=== PATIENT | female | born 1970 | race Caucasian/White ===

== ENCOUNTER 2016-04-15 14:24 | Emergency (ER) | payer OTHER ==
[~2016-04-15] VITALS: Ht 167.6 cm; Wt 136.1 kg
[~2016-04-15 14:24] MED LIST: ACARBOSE25 MG; ALBUTEROL0.09 MG/A1 INH; ALPRAZOLAM0.5 M4 PO; ANTIVERT 25 MG25 MG PO; ANTIVERT25 MG PO; ATIVAN0.5 MG PO; ATIVAN1 MG PO; BENTYL20 MG PO; CLEOCIN HCL300 MG PO; CLINDAMYCIN HY300 MG PO; CLINDAMYCIN300 MG PO; FLEXERIL10 MG PO; FLONASE ALLERG9.9 ML NASB; FUROSEMIDE20 M1 PO; GLUMETZA500 MG PO; HYDROCODONE/ACE1 TA1 PO; IMITREX50 MG PO; LORAZEPAM0.5 MG PO; MEDROL DOSEPAK1 PAC PO; METFORMIN ER500 MG; METFORMIN HCL500 M4 PO; NYSTATIN60 GM TOP; PERCOCET 325 MG1 TA2 PO; PERCOCET 5-3251 EACH PO; PERIOGARD 473473 ML PO; PREDNISONE 20MG20 MG PO; PREDNISONE10 MG PO; SYMBICORT 80/4.1 PUF INH; TAMIFLU 75MG75 MG PO; TAMIFLU75 MG PO; TESSALON PERLE100 MG PO; TRAMADOL50 MG PO; TYLENOL XSTR500 MG PO; ULTRAM(MONOGRAP50 MG PO; VALIUM5 M1 PO; VIBRAMYCIN 100100 MG PO; VIBRAMYCIN100 MG PO; XANAX0.25 M1 PO; XANAX0.5 M1 PO; XANAX0.5 MG PO; ZITHROMAX250 M1 PO; ZOFRAN ODT4 M1 SL; ZOFRAN4 M1 SL
--- NOTE | 2016-04-15 16:19 | ED HEADACHE COMPLAINT ---
History of Present Illness General Chief Complaint: Headache Stated Complaint: MIGRAINE Source: patient, family, old records Exam Limitations: no limitations Vital Signs & Intake/Output Vital Signs & Intake/Output Vital Signs Date Time Temp Pulse Resp B/P Pulse O2 O2 Flow FiO2 Ox Delivery Rate 04/15 1848 97.3 82 16 136/74 97 Room Air 04/15 1453 97.5 75 16 132/82 97 Room Air Allergies Coded Allergies: metformin (From GLUMETZA) (Severe, RASH 07/28/15) Penicillins (PT WAS A BABY AND DOES NOT KNOW REACTION 07/28/15) Sulfa (Sulfonamide Antibiotics) (LARYNGEAL EDEMA, HIVES 07/28/15) codeine (RASH, HIVES, GI 07/28/15) ibuprofen (LARYNGEAL EDEMA 07/28/15) pseudoephedrine (CAUSES HEART PALPITATIONS, SHAKEY AND NERVOUS 07/28/15) Reconcile Medications Acetaminophen (Tylenol Xstr) 500 MG TAB 2 TAB PO PRN HEADACHE (Reported) Alprazolam 0.5 MG TABLET 1 TAB PO TIDPRN ANXIETY (Reported) Butalb/Acetaminophen/Caffeine (Fioricet 50-300-40 MG Capsule) 50 MG-300 MG-40 MG CAPSULE 1 TAB PO Q6 PRN PAIN Furosemide 20 MG TABLET 1 TAB PO PRN EDEMA (Reported) Metformin HCl (Metformin HCl ER) (Unknown Strength) TAB.ER.24H (Unknown Dose) UNKNOWN (Reported) Nystatin 60 GM POWDER 1 SHARAN TOP BID RASH (Reported) apply to affected area(s) Ondansetron (Zofran Odt) 4 MG TAB.RAPDIS 1 TAB SL TID PRN nausea Oxycodone HCl/Acetaminophen (Percocet 5-325 MG Tablet) 5 MG-325 MG TABLET 1 TAB PO BID PRN pain Triage Note: PT STATES SHE WAS SEEN HERE LAST NIGHT FOR A MIGRAINE AND STATES SHE STILL HAD IT A LITTLE BIT. PT REPORTS WHEN SHE WOKE THIS AM IT CAME BACK.. Triage Nurses Notes Reviewed? yes Onset: Gradual Duration: day(s): (few), waxing and waning, worse persistent since (this morning ) Head Injury Location: LEFT FRONTAL No Modifying Factors: none Associated Symptoms: BLURRED VISION : No Patient currently breastfeeds: No HPI: This is a 45-year-old female with history of morbid obesity, panic attacks who presents to the ER for chief complaint of persistent frontal migraine headache. She was seen here yesterday for similar symptoms given Zofran fluids and Percocet with relief. She states that she felt a little bit better when she went home. She's been nauseous ever since and hasn't tolerated food. This when she woke up she states the headache returned. She is complaining of visual disturbances on her right lateral visual field on her right eye. Pain of the headache is on the left side. History of a few headaches over the past one year. She saw a neurologist at some point but no workup was done according to the patient. No imaging studies previously. Patient denies any trauma. She denies any confusion or ataxia. Past History Travel History Traveled to [place] past 21 day No Medical History Any Pertinent Medical History? 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 History of MRSA: Yes History of VRE: No History of CDIFF: No Surgical History Surgical History: cholecystectomy, , hysterectomy Psychosocial History Who do you live with Family Services at Home None What is your primary language Mohawk Tobacco Use: Current Daily Use Daily Tobacco Use Amount/Type: => 5 Cigarettes daily ETOH Use: denies use Illicit Drug Use: denies illicit drug use Family History Family History, If Any: Relation not specified for: Diabetes mellitus in father Diabetes mellitus in mother Hypertension in father Hx Contributory? No Review of Systems Review of Systems Constitutional: Denies: chills, fever. Eyes: Reports: blurred vision. Ears, Nose, Throat, Mouth: Reports: no symptoms. Respiratory: Denies: cough, short of breath, sputum production. Cardiovascular: Denies: chest pain, palpitations. Gastrointestinal/Abdominal: Reports: nausea. Denies: abdominal pain, vomiting. Genitourinary: Reports: no symptoms. Musculoskeletal: Reports: no symptoms. Skin: Reports: no symptoms. Neurological/Psychological: Reports: anxiety, headache. Denies: ataxia, confusion, tingling, tremors. Hematologic/Endocrine: Denies: bruising, bleeding, polyuria, polydipsia. Endocrine: Reports: no symptoms. Immunologic/Allergic: Denies: splenectomy. All Other Systems: Reviewed and Negative Physical Exam Physical Exam General Appearance: well developed/nourished, alert, awake, anxious Head: atraumatic, normal appearance Eyes: Bilateral: normal appearance, PERRL, EOMI. Ears, Nose, Throat: normal pharynx, normal ENT inspection, hearing grossly normal Neck: normal inspection, supple, full range of motion, NO MENINGISMUS, NEGATIVE KERNIG, NEGATIVE BRUDZINSKI Respiratory: normal breath sounds, chest non-tender, no respiratory distress Cardiovascular: regular rate/rhythm Gastrointestinal: normal bowel sounds, soft, non-tender Back: normal inspection, normal range of motion Extremities: normal inspection, normal capillary refill, normal range of motion, no edema Psychiatric: awake, alert, oriented x 3 Cranial Nerves: normal hearing, normal speech, PERRL Coordination/Gait: normal gait Skin: intact, normal color, warm/dry Core Measures Severe Sepsis Present: No Septic Shock Present: No Progress Differential Diagnosis: meningitis, migraine PEARCE, musculoskeletal pain, sinusitis , BENIGN INTRACRANIAL HTN Plan of Care: Orders Procedure Date/time Status CT HEAD ANGIOGRAM 04/15 1624 Active Current Medications Sig/Vivi Start time Last Medication Dose Stop Time Status Admin Acetaminophen 1,000 MG ONCE ONE 04/15 1630 UNVr (Ofirmev) 04/15 1644 N/A 1 UNIT (No Carrier) Ondansetron HCl 4 MG ONCE ONE 04/15 1630 UNVr (Zofran) 04/15 1631 Sodium Chloride 1,000 ML BOLUS ONE 04/15 1630 UNVr (Normal Saline 0.9%) 04/15 1729 ZOFRAN, TYLENOL, NS. CT HEAD ANGIOGRAM ORDERED. (KATHLEEN RANDOLPH,REBECCA) Diagnostic Imaging: Viewed by Me: CT Scan. Discussed w/RAD: CT Scan. Radiology Impression: EXAM TYPE: CAT - CT HEAD ANGIOGRAM EXAMINATION: CT ANGIOGRAM HEAD CLINICAL INFORMATION: 45-year-old female with persistent left headache and right peripheral visual disturbance. COMPARISON: Head CT from 04/05. TECHNIQUE: Initially, noncontrast images of the head were acquired and presented at 2.5 mm slice thickness. Thereafter, a test bolus sequence was performed followed by intravenous administration 94 mL of Optiray 320 intravenous contrast. Helical imaging was performed in the axial plane from below the skull base to the skull vertex. Delayed postcontrast imaging of the head was also performed. The data was processed at the mammography technologist's workstation for generation of MIP sequences. Three-dimensional volume rendered reformatted images were also generated at an offline 3-D workstation. DLP: 1012 mGy-cm. FINDINGS: HEAD: The brain parenchyma has normal attenuation. No intracranial mass, cerebral edema, hemorrhage, or midline shift. The ventricles and sulci are normal in size and configuration. No extra-axial fluid collections. The paranasal sinuses, nasal cavity, nasopharynx, mastoid air cells and middle ear cavities are clear. The orbits, globes and temporomandibular joints are unremarkable. CRANIAL CT angiography: The vertebral arteries are codominant. The petrous segments of the carotid arteries are normal. The cavernous and supraclinoid segments of each ICA are widely patent. There is minimal atherosclerosis of cavernous carotid arteries. There is normal opacification of the major intracranial vessels. The anterior, middle and posterior cerebral arteries are widely patent. No acute proximal large vessel occlusion, focal flow-limiting stenosis, or saccular intracranial aneurysm is identified. No abnormal parenchymal enhancement or regional oligemia is visualized. The dural venous sinuses are patent. IMPRESSION: 1. No acute intracranial pathology. 2. No evidence of cerebral aneurysm. Departure Departure Time of Disposition: 1848 Disposition: HOME OR SELF CARE Condition: Stable Clinical Impression Primary Impression: Headache Referrals: PATIENT HAS NO PRIMARY CARE DR (PCP/Family) PRO CAIN MD. Referred to [facility] as new patient No Additional Instructions: TAKE THE ZOFRAN NEEDED FOR NAUSEA. TAKE THE FIORCET DIRECTED. FOLLOW UP WITH THE NEUROLOGIST LISTED. RETURN NEEDED. Departure Forms: Customer Survey General Discharge Information Prescriptions: Current Visit Scripts Butalb/Acetaminophen/Caffeine (Fioricet 50-300-40 MG Capsule) 1 TAB PO Q6 PRN PAIN #20 TAB
--- NOTE | 2016-04-15 18:25 | CT SCAN REPORT ---
EXAMINATION: CT ANGIOGRAM HEAD CLINICAL INFORMATION: 45-year-old female with persistent left headache and right peripheral visual disturbance. COMPARISON: Head CT from 04/05/2015. TECHNIQUE: Initially, noncontrast images of the head were acquired and presented at 2.5 mm slice thickness. Thereafter, a test bolus sequence was performed followed by intravenous administration 94 mL of Optiray 320 intravenous contrast. Helical imaging was performed in the axial plane from below the skull base to the skull vertex. Delayed postcontrast imaging of the head was also performed. The data was processed at the certified neurodiagnostic technologist's workstation for generation of MIP sequences. Three-dimensional volume rendered reformatted images were also generated at an offline 3-D workstation. DLP: 1012 mGy-cm. FINDINGS: HEAD: The brain parenchyma has normal attenuation. No intracranial mass, cerebral edema, hemorrhage, or midline shift. The ventricles and sulci are normal in size and configuration. No extra-axial fluid collections. The paranasal sinuses, nasal cavity, nasopharynx, mastoid air cells and middle ear cavities are clear. The orbits, globes and temporomandibular joints are unremarkable. CRANIAL CT angiography: The vertebral arteries are codominant. The petrous segments of the carotid arteries are normal. The cavernous and supraclinoid segments of each ICA are widely patent. There is minimal atherosclerosis of cavernous carotid arteries. There is normal opacification of the major intracranial vessels. The anterior, middle and posterior cerebral arteries are widely patent. No acute proximal large vessel occlusion, focal flow-limiting stenosis, or saccular intracranial aneurysm is identified. No abnormal parenchymal enhancement or regional oligemia is visualized. The dural venous sinuses are patent. IMPRESSION: 1. No acute intracranial pathology. 2. No evidence of cerebral aneurysm.
[2016-04-15 18:48] VITALS: BP 136/74
[2016-04-15] MEDS ORDERED: FIORICET 50-301 EACH PO (18:50)
== END 2016-04-15 19:00 ==
LOC: ERH 14:24
DX: R51 Headache (principal)
CPT/HCPCS: 96374; 96375; J0131; J2405; J2550

== ENCOUNTER 2016-05-26 18:10 | Emergency (ER) | payer OTHER ==
[~2016-05-26] VITALS: Ht 167.6 cm; Wt 139.7 kg
[~2016-05-26 18:10] MED LIST changes: +FIORICET 50-301 EACH PO
--- NOTE | 2016-05-26 19:49 | ED GI/GU/ABDOMINAL COMPLAINT ---
History of Present Illness General Chief Complaint: Abdominal Pain/Flank Pain Stated Complaint: ABDOMINAL PAIN AND CAN'T EAT OR DRINK Source: patient Exam Limitations: no limitations Vital Signs & Intake/Output Vital Signs & Intake/Output Vital Signs Date Time Temp Pulse Resp B/P Pulse O2 O2 Flow FiO2 Ox Delivery Rate 05/26 2126 99.4 05/26 1821 99.4 102 18 118/80 98 Room Air Allergies Coded Allergies: metformin (From GLUMETZA) (Severe, RASH 07/28/15) Penicillins (PT WAS A BABY AND DOES NOT KNOW REACTION 07/28/15) Sulfa (Sulfonamide Antibiotics) (LARYNGEAL EDEMA, HIVES 07/28/15) codeine (RASH, HIVES, GI 07/28/15) ibuprofen (LARYNGEAL EDEMA 07/28/15) pseudoephedrine (CAUSES HEART PALPITATIONS, SHAKEY AND NERVOUS 07/28/15) Reconcile Medications Acetaminophen (Tylenol Xstr) 500 MG TAB 2 TAB PO PRN HEADACHE (Reported) Alprazolam 0.5 MG TABLET 1 TAB PO TIDPRN ANXIETY (Reported) Butalb/Acetaminophen/Caffeine (Fioricet 50-300-40 MG Capsule) 50 MG-300 MG-40 MG CAPSULE 1 TAB PO Q6 PRN PAIN Furosemide 20 MG TABLET 1 TAB PO PRN EDEMA (Reported) Metformin HCl (Metformin HCl ER) (Unknown Strength) TAB.ER.24H (Unknown Dose) UNKNOWN (Reported) Nystatin 60 GM POWDER 1 SHARAN TOP BID RASH (Reported) apply to affected area(s) Ondansetron (Zofran Odt) 4 MG TAB.RAPDIS 1 TAB SL TID PRN nausea Oxycodone HCl/Acetaminophen (Percocet 5-325 MG Tablet) 5 MG-325 MG TABLET 1 TAB PO BID PRN pain Triage Note: 45 YO FEMALE TO TRIAGE C/O ABD PAIN "ALL OVER" AND BODY ACHES SINCE THIS AM. +D. TEMP 99.5 AT THIS TIME. PT STATES SHE HAS BEEN RUNNING A FEVER ALL DAY. PT STATES SHE HASNE BEEN ABLE TO EAT OR DRINK TODAY D/T THE PAIN. Triage Nurses Notes Reviewed? yes ? N Is pt currently ? No Onset: Gradual Duration: constant Timing: recent history Quality/Severity: fullness, moderate Severity Numbers: 5 Location: epigastric Activities at Onset: eating HPI: Patient is a 45-year-old female who presents emergency room stating that this afternoon patient had a gradual onset of chills itchy scratchy throat, not feeling well and epigastric discomfort. Patient states that she also had multiple EPISODES of nonbloody nonbilious loose watery stool production. Patient is tolerant of by mouth however she states that no vomiting occurs but it hurts immediately after she drinks or eats something. She is status post cholecystectomy and hysterectomy. Denies any significant NSAID use and denies alcohol use. Denies any cough shortness of breath chest pain arm pain jaw pain vaginal bleeding vaginal discharge hematuria dysuria or change in frequency of urination SIMILAR Sick contact at home Past History Travel History Traveled to [facility] past 21 day No Medical History Any Pertinent Medical History? 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 History of MRSA: Yes History of VRE: No History of CDIFF: No Surgical History Surgical History: cholecystectomy, , hysterectomy Psychosocial History Who do you live with Family Services at Home None What is your primary language Armenian Tobacco Use: Never used Family History Family History, If Any: Relation not specified for: Diabetes mellitus in father Diabetes mellitus in mother Hypertension in father Hx Contributory? No Review of Systems Review of Systems Constitutional: Reports: see HPI. EENTM: Reports: see HPI. Respiratory: Reports: see HPI. Denies: cough. Cardiovascular: Reports: see HPI. Denies: chest pain. GI: Reports: see HPI, abdominal pain, diarrhea. Genitourinary: Reports: no symptoms. Musculoskeletal: Reports: no symptoms. Skin: Reports: no symptoms. Neurological/Psychological: Reports: no symptoms. Hematologic/Endocrine: Reports: no symptoms. Immunologic/Allergic: Reports: no symptoms. All Other Systems: Reviewed and Negative Physical Exam Physical Exam General Appearance: no apparent distress, obese Gastrointestinal: normal bowel sounds, soft, MILD EPIGASTRIC POINT TENDERNESS NOTED, NO RIGHT LOWER QUADRANT PAIN NO LEFT LOWER QUADRANT PAIN NO PERITONEAL SIGNS NO REBOUND TENDERNESS Comments: HEENT: Normal EENT exam, extraocular motion intact, no nystagmus. Pupils equally round and reactive to light and accommodation. Nose is atraumatic. External auditory canal and Tympanic membranes clear. Pharynx normal. No swelling or edema. Neck: Supple, no lymphadenopathy, normal range of motion without pain or tenderness Back: Nontender, no CVA tenderness. Cardiovascular: Regular rate and rhythms no murmurs rubs or gallops, normal JVP Respiratory: Chest nontender. No respiratory distress.breath sounds clear to auscultation bilaterally Extremity: No edema, no calf tenderness to palpation, normal and equal pulses. Neuro: Alert oriented x3, motor sensory normal, Skin: No appreciable rash on exposed skin, skin is warm and dry. Psych: Mood and affect is normal, memory and judgment is normal. Core Measures ACS in differential dx? No Severe Sepsis Present: No Septic Shock Present: No Progress Differential Diagnosis: AAA, AMI, appendicitis, biliary colic, bowel obstruction , colon cancer, diverticulitis, esophageal varices, gastritis, hepatitis, hernia , hemorrhoids, ischemic bowel, inflamm bowel dis, kidney stone, Lizbeth-Shahrzad tear, ovarian cyst, ovarian torsion, pancreatitis, PID/cervicitis, peptic ulcer, PUD/GERD, perforated viscous, SBO, threatened AB, UTI/pyelo Plan of Care: Orders Procedure Date/time Status THROAT CULTURE W/QUICK STREP 05/26 1945 Active LIPASE 05/26 1945 Complete COMPREHENSIVE METABOLIC PANEL 05/26 1945 Complete CBC WITHOUT DIFFERENTIAL 05/26 1945 Complete AMYLASE 05/26 1945 Complete CULTURE,URINE 05/26 1822 Active URINALYSIS 05/26 1822 Complete Laboratory Tests 05/26/162112: Urine Color YEL, Urine Clarity CLEAR, Urine pH 6.0, Ur Specific [place] >= 1.030 , Urine Protein NEG, Urine Ketones NEG, Urine Nitrite NEG, Urine Bilirubin NEG, Urine Urobilinogen 0.2, Ur Leukocyte Esterase NEG, Ur Microscopic EXAM NOT REQUIRED, Urine Hemoglobin NEG, Urine Glucose NEG 05/26/162024: Anion Gap 10, Estimated GFR > 60, BUN/Creatinine Ratio 20.0, Glucose 99, Calcium 9.0, Total Bilirubin 0.5, AST 24, ALT 41, Alkaline Phosphatase 101, Total Protein 6.6, Albumin 4.0, Globulin 2.6, Albumin/Globulin Ratio 1.5, Amylase < 30 L, Lipase 75, CBC w Diff NO MAN DIFF REQ, RBC 4.89, MCV 89.9, MCH 30.1, RDW 13.4, MPV 7.8, Gran % 78.6 H, Lymphocytes % 14.9 L, Monocytes % 4.9, Eosinophils % 1.3, Basophils % 0.3, Absolute Granulocytes 8.4 H, Absolute Lymphocytes 1.6, Absolute Monocytes 0.5, Absolute Eosinophils 0.1, Absolute Basophils 0, PUBS MCHC 33.5 Microbiology 05/26 2112 URINE ROUT: Urine Culture - RECD Patient currently is in no apparent distress patient has no right lower quadrant pain at this time has no concerns of appendicitis. Blood work will be obtained IV access and normal fluid resuscitation will be administered GI cocktail will be administered. Patient is tolerant of by mouth and has no vomiting occurrence and patient has concerns of enteritis After GI cocktail was administered patient then had 1 episode of vomiting patient was given Zofran and had resolution of her nausea. Patient is requesting something to drink. Blood work was unremarkable. Patient did complain of a headache which Tylenol was administered. Patient was able tolerate by mouth on discharge and patient has significant improvement of presenting complaints. Patient states that she received medications of Protonix by Dr. Montez however she has not begun this medication and which I strongly advised patient to begin. Patient was offered Bentyl however refused this medication. Upon discharge patient looks well no apparent distress and will comply with discharge instructions and had no questions (DEMAR RODRIGUEZ,REBEKAH) Initial ED EKG: none Departure Departure Disposition: HOME OR SELF CARE Condition: Stable Clinical Impression Primary Impression: Abdominal pain Secondary Impressions: Diarrhea, Enteritis, Nausea & vomiting Referrals: HALIMA RODRIGUEZ,CAROL NORRIS (PCP/Family) Additional Instructions: As discussed begin drinking plenty of water for hydration and begin a clear liquid diet and bland diet to rest your bowels. 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 Montez of Protonix for your symptoms and Zofran for future nausea. If symptoms worsen return to emergency room. Follow-up next week with Dr. Montez if symptoms do not improve. Departure Forms: Customer Survey General Discharge Information
[2016-05-26 20:33] LABS: ABSOLUTE BASOPHIL COUNT 0 /CUMM (0.0-0.2); ABSOLUTE EOSINOPHIL COUNT 0.1 /CUMM (0.0-0.7); ABSOLUTE GRANULOCYTE CT 8.4 /CUMM (1.4-6.5); ABSOLUTE LYMPH COUNT 1.6 /CUMM (1.2-3.4); ABSOLUTE MONOCYTE COUNT 0.5 /CUMM (0.10-0.60); BASOPHIL % 0.3 % (0.0-2.0); EOSINOPHIL % 1.3 % (0-5); GRANULOCYTE % 78.6 % (42.2-75.2); MEAN CORPUSCULAR HGB 30.1 PG (27.0-31.0); MEAN CORPUSCULAR HGB CONC 33.5 G/DL (33.0-37.0); MEAN CORPUSCULAR VOLUME 89.9 FL (81.0-99.0); MEAN PLATELET VOLUME 7.8 FL (7.4-10.4); PLATELET COUNT 219 /CUMM (130-400); RBC DISTRIBUTION WIDTH 13.4 % (11.5-14.5); RED BLOOD CELL CT 4.89 /CUMM (4.20-5.40); WHITE BLOOD CELL COUNT 10.8 /CUMM (4.8-10.8)
[2016-05-26 22:13] VITALS: BP 137/62
== END 2016-05-26 22:21 ==
LOC: ERH 18:10
PROVIDERS: Physician Assistant
DX: K52.9 Noninfective gastroenteritis and colitis, unspecified (principal); J02.9 Acute pharyngitis, unspecified
CPT/HCPCS: 81003; 87086; 96361; 96374; J2405

== ENCOUNTER 2016-08-06 14:49 | Emergency (ER) | payer OTHER ==
[2016-08-06 14:55] VITALS: BP 111/75
[2016-08-06] MEDS ORDERED: FLUTICASONE PRO16 GM NASB (16:02)
[2016-08-06] MEDS ORDERED: CLINDAMYCIN HC300 M1 (16:02)
[2016-08-06] MEDS ORDERED: SERTRALINE HCL25 MG (16:03)
[2016-08-06] MEDS ORDERED: TOPIRAMATE50 M1 (16:04)
--- NOTE | 2016-08-06 16:10 | ED PSYCHIATRIC COMPLAINT ---
History of Present Illness General Chief Complaint: General Adult Stated Complaint: "NOT FEELING WELL" SHAKEY/WEAKNESS Source: patient, old records Exam Limitations: no limitations Vital Signs & Intake/Output Vital Signs & Intake/Output Vital Signs Date Time Temp Pulse Resp B/P B/P Pulse O2 O2 Flow FiO2 Mean Ox Delivery Rate 08/06 1616 Room Air 08/06 1455 97.0 90 20 111/75 98 Room Air Allergies Coded Allergies: metformin (From GLUMETZA) (Severe, RASH FROM GLUMETZA BRAND - HIVES 08/06/16) Penicillins (PT WAS A BABY AND DOES NOT KNOW REACTION 07/28/15) Sulfa (Sulfonamide Antibiotics) (LARYNGEAL EDEMA, HIVES 07/28/15) codeine (RASH, HIVES, GI 07/28/15) ibuprofen (LARYNGEAL EDEMA 07/28/15) pseudoephedrine (CAUSES HEART PALPITATIONS, SHAKEY AND NERVOUS 07/28/15) Reconcile Medications Alprazolam 0.5 MG TABLET 1 TAB PO TIDPRN ANXIETY (Reported) Clindamycin HCl (Unknown Strength) CAPSULE (Unknown Dose) UNKNOWN (Reported) Fluticasone Propionate 50 MCG/ACTUATION SPRAY.SUSP 2 SPRAY NASB PRN ALLERGIES (Reported) Metformin HCl (Metformin HCl ER) 500 MG TAB.ER.24H 1 TAB PO QPM INSULIN RESISTANCE (Reported) Sertraline HCl (Unknown Strength) TABLET (Unknown Dose) UNKNOWN (Reported) Topiramate (Unknown Strength) TABLET (Unknown Dose) UNKNOWN (Reported) Triage Note: PT STATES SHE HAS PANIC ATTACKS SO SHE WENT HOME TO GO LAY DOWN AND WHEN SHE DID SHE STATES HER HEART WAS BEATING REALLY FAST AND POUNDING AGAINST HER CHEST. PT STATES SHE GETS THE ATTACKS RANDOMLY EVEN IS SHE IS CALM AT THE TIME Triage Nurses Notes Reviewed? yes Onset: Abrupt Duration: hour(s): (1), better, resolved prior to arrival Timing: single episode today Severity: mild, moderate Severity Numbers: 5 Associated Symptoms: anxiety : No Patient currently breastfeeds: No HPI: 46 year old female with history of anxetiy on xanax prn presents to the ER for evaluation after she states she had a panic attack today that lasted longer than normal. The patient states that she randomly has panic attacks that she's had for years normally after taking her Xanax and improved. She states she was sitting in her car waiting for her daughter when she began to have episodes of diaphoresis palpitation which she's had in the past and has had an extensive workup by her cone chocolate dipper and primary care physician. She took a Xanax and states went home. She denies any chest pain jaw back arm pain no dyspnea no abdominal pain nausea vomiting or diarrhea. She states the symptoms finally resolved after being home. She denies recent Stressors. The patient is seen by her primary care physician and therapist she' s never been admitted to the hospital due to her anxiety and is declining wishing to speak with crisis when offered. The patient is resting conflicts time without complaints. No palpitations dizziness lightheadedness. Patient denies SI or HI (REBEKAH MARKS) Past History Travel History Traveled to [place] past 21 day No Medical History Any Pertinent Medical History? 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 History of MRSA: Yes History of VRE: No History of CDIFF: No Surgical History Surgical History: cholecystectomy, , hysterectomy Psychosocial History Who do you live with Family Services at Home None What is your primary language East Timorese Tobacco Use: Current Daily Use Daily Tobacco Use Amount/Type: => 5 Cigarettes daily ETOH Use: denies use Illicit Drug Use: denies illicit drug use Family History Family History, If Any: Relation not specified for: Diabetes mellitus in father Diabetes mellitus in mother Hypertension in father Hx Contributory? No (REBEKAH MARKS) Review of Systems Review of Systems Constitutional: Reports: see HPI. All Other Systems: Reviewed and Negative Comments Review of systems: See HPI, All other systems negative. Constitutional, no chills no fever, no malaise no weight loss HEENT: No visual changes no sore throat no congestion, no ear pain Cardiovascular: No chest pain , no palpitation , no orthopnea Skin: no rashes, no change in skin Respiratory: No dyspnea no cough no sputum no hemoptysis GI: No nausea no vomiting, no diarrhea, no bloating/constipation : No dysuria No hematuria, no frequency, no discharge Muscle skeletal: No joint pain, no joint swelling, no back pain, no neck pain, Neurologic: No numbness no confusion, no headache Psych: stress anxiety Heme/endocrine: No bruising no bleeding Immunology: No lymphadenopathy (REBEKAH MARKS) Physical Exam Physical Exam General Appearance: well developed/nourished, alert, awake Neurological/Psychiatric: no motor/sensory deficits, awake, alert, normal mood/ affect Comments: Well-developed well-nourished person in no acute distress HEENT: Normal EENT exam; PERRL, EOMI, HEAD is atraumatic. moist mucous membranes. Neck: Supple, no lymphadenopathy, normal range of motion Back: Nontender, no CVA tenderness. Full range of motion Cardiovascular: Regular rate and rhythms no murmurs rubs Respiratory: No respiratory distress. Patient speaking in full complete sentences. Breath sounds clear to auscultation bilaterally: NO W/R/R Abdomen: Soft, nontender nondistended, Extremity: No edema, full range of motion of extremities, normal and equal pulses bilaterally, 5 out of 5 strength noted to bilateral upper and lower extremities Neuro: Alert oriented x3, motor sensory normal, cranial nerves II through XII grossly intact. There were no obvious focal neurologic abnormalities. Skin: No appreciable rash on exposed skin, skin is warm and dry. Psych: Mood and affect is normal, memory and judgment is normal. SAD PERSONS Done? patient not suicidal (REBEKAH MARKS) Progress Differential Diagnosis: drug withdrawal, electrolyte abnormality, DEPRESSION, ANXIETY, BIPOLAR Plan of Care: Orders Procedure Date/time Status TROPONIN LEVEL 08/06 162 Complete HUMAN BETA HCG SCREEN 08/06 162 Complete CBC WITHOUT DIFFERENTIAL 08/06 1621 Complete BASIC METABOLIC PANEL 08/06 162 Complete EKG 08/06 1621 Active Laboratory Tests 08/06/16 1630: Anion Gap 9, Estimated GFR > 60, BUN/Creatinine Ratio 16.7, Glucose 94, Calcium 9.6, Troponin I < 0.01, Total Beta HCG NEGATIVE, CBC w Diff NO MAN DIFF REQ, RBC 4.84, MCV 91.0, MCH 30.4, RDW 13.6, MPV 7.7, Gran % 71.3, Lymphocytes % 21.6, Monocytes % 5.9, Eosinophils % 0.9, Basophils % 0.3, Absolute Granulocytes 9.3 H, Absolute Lymphocytes 2.8, Absolute Monocytes 0.8 H, Absolute Eosinophils 0.1 , Absolute Basophils 0, PUBS MCHC 33.4 Patient resting in no apparent distress denies any complaints at this time, perc negative, pt states she has had several year history of similar episodes. pt declining wishing to speak with crisis. I discussed with the patient at length all of their results. I had an extensive conversation regarding need for close follow up with their primary care physician this week as well as return precautions. she has xanax a home. I answered all of their questions, they feel comfortable with the plan and follow- up care. (REBEKAH MARKS) Initial ED EKG: normal intervals, normal p-waves, normal QRS complex, normal sinus rhythm (80) Prior EKG: unchanged (10/2015) (REBEKAH MARKS) Departure Departure Disposition: HOME OR SELF CARE Condition: Stable Clinical Impression Primary Impression: Generalized anxiety disorder Referrals: CAROL PETERSEN (PCP/Family) Additional Instructions: Follow-up with your primary care physician tomorrow as scheduled return at anytime sooner if he redevelops symptoms or have any other concerns or wish to speak with someone Departure Forms: Customer Survey General Discharge Information (REBEKAH MARKS) PA/VACUUM COOKER OPERATOR Co-Sign Statement Statement: ED Attending supervision documentation- [] I saw and evaluated the patient. I have also reviewed all the pertinent lab results and diagnostic results. I agree with the findings and the plan of care as documented in the PA's/VACUUM COOKER OPERATOR's documentation. [x] I have reviewed the ED Record and agree with the PA's/VACUUM COOKER OPERATOR's documentation. [] Additions or exceptions (if any) to the PAs/VACUUM COOKER OPERATOR's note and plan are summarized below: [] (NORMA PETE DO
[2016-08-06 16:41] LABS: ABSOLUTE BASOPHIL COUNT 0 /CUMM (0.0-0.2); ABSOLUTE EOSINOPHIL COUNT 0.1 /CUMM (0.0-0.7); ABSOLUTE GRANULOCYTE CT 9.3 /CUMM (1.4-6.5); ABSOLUTE LYMPH COUNT 2.8 /CUMM (1.2-3.4); ABSOLUTE MONOCYTE COUNT 0.8 /CUMM (0.10-0.60); BASOPHIL % 0.3 % (0.0-2.0); EOSINOPHIL % 0.9 % (0-5); GRANULOCYTE % 71.3 % (42.2-75.2); HEMATOCRIT 44.1 % (37-47); MEAN CORPUSCULAR HGB 30.4 PG (27.0-31.0); MEAN CORPUSCULAR HGB CONC 33.4 G/DL (33.0-37.0); MEAN PLATELET VOLUME 7.7 FL (7.4-10.4); PLATELET COUNT 266 /CUMM (130-400); RBC DISTRIBUTION WIDTH 13.6 % (11.5-14.5); RED BLOOD CELL CT 4.84 /CUMM (4.20-5.40); WHITE BLOOD CELL COUNT 13.1 /CUMM (4.8-10.8)
== END 2016-08-06 17:31 ==
LOC: ERH 14:49
PROVIDERS: Physician Assistant Medical
DX: F41.1 Generalized anxiety disorder (principal)
CPT/HCPCS: 93005; 93010

== ENCOUNTER 2016-08-16 17:21 | Emergency (ER) | payer OTHER ==
[~2016-08-16] VITALS: Ht 167.6 cm; Wt 140.6 kg
[~2016-08-16 17:21] MED LIST changes: +CLINDAMYCIN HC300 M1; +FLUTICASONE PRO16 GM NASB; +SERTRALINE HCL25 MG; +TOPIRAMATE50 M1
[2016-08-16 17:25] VITALS: BP 143/82
--- NOTE | 2016-08-16 17:59 | RADIOLOGY REPORT ---
EXAMINATION: HAND AND WRIST, LEFT CLINICAL INFORMATION: Pain COMPARISON: None. TECHNIQUE: 3 views of each. FINDINGS: Bone mineral density is maintained without evidence of fracture or dislocation. No focal osseous lesions are seen. Joint space is maintained without productive or erosive changes. IMPRESSION: No fracture or dislocation.
[2016-08-16] MEDS ORDERED: PERCOCET 5-3251 EACH PO (18:02)
[2016-08-16] MEDS ORDERED: METOPROLOL SUCC25 M1 PO (18:03)
--- NOTE | 2016-08-16 18:03 | ED HAND/WRIST INJURY COMPLAINT ---
History of Present Illness General Chief Complaint: Hand or Wrist Injury Stated Complaint: LEFT WRIST PAIN S/P FALL Source: patient Exam Limitations: no limitations Vital Signs & Intake/Output Vital Signs & Intake/Output Vital Signs Date Time Temp Pulse Resp B/P B/P Pulse O2 O2 Flow FiO2 Mean Ox Delivery Rate 08/16 1826 98 Room Air 08/16 1728 97.4 08/16 1725 97.4 80 16 143/82 98 Room Air Allergies Coded Allergies: metformin (From GLUMETZA) (Severe, RASH FROM GLUMETZA BRAND - HIVES 08/06/16) Penicillins (PT WAS A BABY AND DOES NOT KNOW REACTION 07/28/15) Sulfa (Sulfonamide Antibiotics) (LARYNGEAL EDEMA, HIVES 07/28/15) codeine (RASH, HIVES, GI 07/28/15) ibuprofen (LARYNGEAL EDEMA 07/28/15) pseudoephedrine (CAUSES HEART PALPITATIONS, SHAKEY AND NERVOUS 07/28/15) Reconcile Medications Alprazolam 0.5 MG TABLET 1 TAB PO TIDPRN ANXIETY (Reported) Metformin HCl (Metformin HCl ER) 500 MG TAB.ER.24H 1 TAB PO QPM INSULIN RESISTANCE (Reported) Metoprolol Succinate 25 MG TAB 0.5 TAB PO DAILY HEART (Reported) Oxycodone HCl/Acetaminophen (Percocet 5-325 MG Tablet) 5 MG-325 MG TABLET 1-2 TAB PO Q6P PRN PAIN Sertraline HCl (Unknown Strength) TABLET (Unknown Dose) UNKNOWN (Reported) Triage Note: PT STATES SHE FELL AND HIT HER LEFT HAND/WRIST ON WOODEN SURFACE. PT C/O HAND AND WRIST PAIN Triage Nurses Notes Reviewed? yes Occurred: just prior to arrival Duration: minute(s):, constant, continues in ED Timing: single episode today Injury Environment: home Severity: severe Pain/Injury Location: Left: Wrist, Hand. Method of Injury: direct blow, fall No Modifying Factors: none : No Patient currently breastfeeds: No HPI: 46-year-old female comes into emergency room for further evaluation of left wrist and hand pain. Patient reports that when she was walking in the house she slipped and fell backwards and flung her hand out and hit it on the door/wall. Patient reports severe pain since then. Sharp. Associated swelling. Denies any injury or trauma anywhere else on her body. Denies any other associated symptoms. (ALEXANDRIA MELGAR) Past History Travel History Traveled to [place] past 21 day No Medical History Any Pertinent Medical History? 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 History of MRSA: Yes History of VRE: No History of CDIFF: No Surgical History Surgical History: cholecystectomy, , hysterectomy Psychosocial History Who do you live with Family Services at Home None What is your primary language Maldivian Tobacco Use: Current Daily Use Daily Tobacco Use Amount/Type: => 5 Cigarettes daily ETOH Use: denies use Illicit Drug Use: denies illicit drug use Family History Family History, If Any: Relation not specified for: Diabetes mellitus in father Diabetes mellitus in mother Hypertension in father Hx Contributory? No (ALEXANDRIA MELGAR) Review of Systems Review of Systems Constitutional: Reports: no symptoms. EENTM: Reports: no symptoms. Respiratory: Reports: no symptoms. Cardiovascular: Reports: no symptoms. GI: Reports: no symptoms. Genitourinary: Reports: no symptoms. Musculoskeletal: Reports: see HPI. Skin: Reports: no symptoms. Neurological/Psychological: Reports: no symptoms. Hematologic/Endocrine: Reports: no symptoms. Immunologic/Allergic: Reports: no symptoms. All Other Systems: Reviewed and Negative (ALEXANDRIA MELGAR) Physical Exam Physical Exam General Appearance: well developed/nourished, mild distress Head: atraumatic Eyes: Bilateral: normal appearance. Ears, Nose, Throat: normal ENT inspection, hearing grossly normal Neck: normal inspection Cardiovascular/Respiratory: no respiratory distress Back: normal inspection Wrist Left: tenderness, limited range of motion Hand Left: limited range of motion, swelling, tender Hand Right: normal inspection Neurologic/Tendon: normal sensation, normal motor functions, normal tendon functions, responds to pain, no evidence tendon injury, no pulse deficit Skin: intact, normal color, warm/dry Lymphatic: no anterior cervical trina (ALEXANDRIA MELGAR) Progress Differential Diagnosis: contusion, compartment syndrome, dislocation, felon, fracture, paronychia, septic arthritis, sprain, tenosynovitis Plan of Care: Orders Procedure Date/time Status Durable Medical Equipment 08/16 1813 Active Durable Medical Equipment 08/16 180 Active Diagnostic Imaging: Viewed by Me: Radiology Read. Discussed w/RAD: Radiology Read. Radiology Impression: SERVICE DATE: 08/16/16 EXAM TYPE: RAD - XRY-HAND, LEFT; XRY-WRIST COMPLETE-LEFT EXAMINATION: HAND AND WRIST, LEFT CLINICAL INFORMATION: Pain COMPARISON: None. TECHNIQUE: 3 views of each. FINDINGS: Bone mineral density is maintained without evidence of fracture or dislocation. No focal osseous lesions are seen. Joint space is maintained without productive or erosive changes. IMPRESSION: No fracture or dislocation. DICTATED BY: ISAEL CONNER MD DATE/TIME DICTATED:08/16/161752 CASTING MACHINE SET UP OPERATOR:NEVAEH (ALEXANDRIA MELGAR) Departure Departure Disposition: HOME OR SELF CARE Condition: Stable Clinical Impression Primary Impression: Contusion of left hand Referrals: HALIMA RODRIGUEZ,CAROL NORRIS (PCP/Family) Additional Instructions: Ice. Rest. Take Vicodin as needed. Return if any other concerns. Follow-up with orthopedic if not better in 7-10 days. Please go over all results of today's visit with your primary care doctor. Contact your primary care doctor to let them know you were here in the emergency room. There may be nonspecific findings which may not be related to your visit today here in the emergency room but may require further evaluation and chronic monitoring by your primary care doctor. If you had a laceration today the chance of foreign body always remains. You should follow-up with your primary care doctor for recheck in 3-5 days for a wound check. If you had an x-ray done there is a chance that a fracture could have been missed on initial read and you should follow-up with your primary care doctor for repeat x-rays if symptoms persist. If your blood pressure was elevated here in the emergency room please have rechecked by her primary care doctor within the next 48 hours by your primary care doctor. If you were prescribed a narcotic here in the emergency room or any type of controlled substances you're not allowed to drive while taking this medication or operate any type of heavy machinery. Narcotics can make you feel lightheaded dizziness nausea and can cause constipation. You may need to fiber picker a stool softener. Thank you for choosing [facility] emergency room. Please return to the emergency room immediately if you have any other concerns worsening of symptoms. Departure Forms: Customer Survey General Discharge Information Prescriptions: Current Visit Scripts Oxycodone HCl/Acetaminophen (Percocet 5-325 MG Tablet) 1-2 TAB PO Q6P PRN PAIN #10 TAB (ALEXANDRIA MELGAR) PA/SINGLE SPINDLE SCREW MACHINE OPERATOR Co-Sign Statement Statement: ED Attending supervision documentation- [X] I saw and evaluated the patient. I have also reviewed all the pertinent lab results and diagnostic results. I agree with the findings and the plan of care as documented in the PA's/SINGLE SPINDLE SCREW MACHINE OPERATOR's documentation. [] I have reviewed the ED Record and agree with the PA's/SINGLE SPINDLE SCREW MACHINE OPERATOR's documentation. [] Additions or exceptions (if any) to the PAs/SINGLE SPINDLE SCREW MACHINE OPERATOR's note and plan are summarized below: [] (NORMA PETE DO) Procedures Splinting Location: left wrist/hand, left shoulder Pre-Made Type: shoulder immobilizer Splint: wrist Splint Applied By: splint applied by me Pre-Proc Neuro Vasc Exam: normal Post-Proc Neuro Vasc Exam: normal (ALEXANDRIA MELGAR)
[2016-08-16] MEDS ORDERED: SERTRALINE HCL25 MG (18:04)
== END 2016-08-16 18:27 ==
LOC: ERH 17:21
DX: S60.222A Contusion of left hand, initial encounter (principal); W01.0XXA Fall on same level from slipping, tripping and stumbling without subsequent striking against object, initial encounter; Y93.01 Activity, walking, marching and hiking; Y92.009 Unspecified place in unspecified non-institutional (private) residence as the place of occurrence of the external cause
CPT/HCPCS: 73110-LT; 73130-LT

== ENCOUNTER 2017-04-10 14:46 | Emergency (ER) | payer OTHER ==
[~2017-04-10] VITALS: Ht 167.6 cm; Wt 140.6 kg
[~2017-04-10 14:46] MED LIST changes: +METOPROLOL SUCC25 M1 PO
[2017-04-10 14:54] VITALS: BP 134/81
[2017-04-14] MEDS ORDERED: ZOFRAN ODT4 M1 SL (03:55)
[2017-04-14] MEDS ORDERED: LOMOTIL 2.5-0.1 EACH PO (03:55)
[2017-04-14] MEDS ORDERED: TESSALON PERLE100 M1 PO (03:56)
[2017-04-19] MEDS ORDERED: FLOVENT DISKU250 MCG INH (13:41)
[2017-04-19] MEDS ORDERED: MEDROL4 M2 PO (13:41)
[2017-04-19] MEDS ORDERED: PROMETHAZINE-D118 ML PO (13:41)
[2017-04-19] MEDS ORDERED: ADVAIR 100-501 EACH INH (18:20)
[2017-04-19] MEDS ORDERED: FLOVENT HFA12 G1 INH (18:26)
[2017-04-20] MEDS ORDERED: VENTOLIN HFA18 GM INH (02:45)
== END 2017-04-10 15:49 | disposition admitted as inpatient to this hospital (09) ==
LOC: ERH 14:46
DX: R51 Headache (principal)

== ENCOUNTER 2017-07-19 03:25 | Emergency (ER) | payer OTHER ==
[~2017-07-19 03:25] MED LIST changes: +ADVAIR 100-501 EACH INH; +FLOVENT DISKU250 MCG INH; +FLOVENT HFA12 G1 INH; +LOMOTIL 2.5-0.1 EACH PO; +MEDROL4 M2 PO; +PROMETHAZINE-D118 ML PO; +TESSALON PERLE100 M1 PO; +VENTOLIN HFA18 GM INH
--- NOTE | 2017-07-19 03:45 | ED CARDIAC/CP/PALPITATIONS ---
See Addendum History of Present Illness General Chief Complaint: Chest Pain Stated Complaint: BIBA, CP Source: patient, old records, EMS Exam Limitations: no limitations Vital Signs & Intake/Output Vital Signs & Intake/Output Vital Signs Date Time Temp Pulse Resp B/P B/P Pulse O2 O2 Flow FiO2 Mean Ox Delivery Rate 07/19 602 76 16 100/47 97 Room Air 07/19 0458 110 07/19 0456 110 07/19 0420 96 07/19 0410 117 07/19 0350 92 07/19 0336 97 Room Air Room Air 07/19 033 98.3 108 16 145/77 98 Room Air Room Air Allergies Coded Allergies: metformin (From GLUMETZA) (Severe, RASH FROM GLUMETZA BRAND - HIVES 03/10/17) Penicillins (PT WAS A BABY AND DOES NOT KNOW REACTION 03/10/17) Sulfa (Sulfonamide Antibiotics) (LARYNGEAL EDEMA, HIVES 03/10/17) codeine (RASH, HIVES, GI 03/10/17) ibuprofen (LARYNGEAL EDEMA 03/10/17) pseudoephedrine (CAUSES HEART PALPITATIONS, SHAKEY AND NERVOUS 03/10/17) Reconcile Medications Albuterol Sulfate (Ventolin Hfa) 90 MCG HFA.AER.AD 2 PUF INH Q4-6 PRN PRN cough Alprazolam 0.5 MG TABLET 1 TAB PO TIDPRN ANXIETY (Reported) Fluticasone Propionate (Flovent Diskus) 250 MCG BLST.W.DEV 1-2 PUFF INH DAILY BRONCHITIS Fluticasone Propionate (Flovent Hfa) 110 MCG/ACTUATION AER.W.ADAP 2 PUF INH BID BRONCHITIS Fluticasone-Salmeterol (Advair 100-50 Diskus) 100 MCG-50 MCG/DOSE BLST.W.DEV 1 PUF INH BID BRONCHITIS Methylprednisolone. (Medrol) 4 MG TAB.DS.PK 1 DP PO AD BRONCHITIS 6 on day 1 then reduce by one tablet daily until gone Metoprolol Succinate 25 MG TAB 1 TAB PO DAILY HEART (Reported) Promethazine/Dextromethorphan (Promethazine-Dm Syrup) 6.25 MG-15 MG/5 ML SYRUP 5 ML PO Q4P PRN COUGH Triage Note: 47YO FEMAE TO RM 2 VIA AMB FROM HOME SP AWAKING TO CHOKING FEELING AND FLUTTER IN HER CHEST. STTES HX RAPID HEART RATE AND ANXIETY AND PANIC ATTACK Triage Nurses Notes Reviewed? yes Onset: Just prior to arrival Duration: minute(s):, constant, continues in ED Timing: recent history Quality/Severity: moderate, pressure Location: central Radiation: no radiation Activities at Onset: sleep Prior Chest Pain/Card Workup: non-cardiac Nitro Today/Relief: no nitro taken today Aspirin Today: no aspirin today Associated Symptoms: diaphoresis, dizziness, shortness of breath, weakness LMP (ages 10-50): unknown : No Patient currently breastfeeds: No HPI: Prior to admission patient awoke with fast heartbeat palpitations substernal chest discomfort associated with shortness of breath dizziness diaphoresis. She denies fever chills vomiting diarrhea headache dysuria rash bleeding. Past History Travel History Traveled to [place] past 21 day No Medical History Any Pertinent Medical History? 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 History of MRSA: Yes History of VRE: No History of CDIFF: No Surgical History Surgical History: cholecystectomy, , hysterectomy Psychosocial History Who do you live with Family Services at Home None What is your primary language Tajik Tobacco Use: Refused to answer Family History Family History, If Any: Relation not specified for: Diabetes mellitus in father Diabetes mellitus in mother Hypertension in father Hx Contributory? No Review of Systems Review of Systems Constitutional: Reports: see HPI, malaise. EENTM: Reports: no symptoms. Respiratory: Reports: see HPI, short of breath. Cardiovascular: Reports: see HPI, chest pain, palpitations. GI: Reports: see HPI, nausea. Genitourinary: Reports: no symptoms. Musculoskeletal: Reports: no symptoms. Skin: Reports: no symptoms. Neurological/Psychological: Reports: no symptoms. Hematologic/Endocrine: Reports: no symptoms. Immunologic/Allergic: Reports: no symptoms. All Other Systems: Reviewed and Negative Physical Exam Physical Exam General Appearance: well developed/nourished, alert, awake, anxious, mild distress, obese Head: atraumatic, normal appearance Eyes: Bilateral: normal appearance, PERRL, EOMI. Ears, Nose, Throat: normal pharynx, normal ENT inspection, hearing grossly normal Neck: normal inspection, supple, full range of motion, no midline tenderness Respiratory: normal breath sounds, chest non-tender, no respiratory distress, quiet respiration, lungs clear Cardiovascular: normal peripheral pulses, tachycardia, irregularly irregular, norml femoral pulses equa Peripheral Pulses: 4+ carotid (R), 4+ carotid (L) Gastrointestinal: normal bowel sounds, soft, non-tender, no organomegaly Back: normal inspection, normal range of motion, no vertebral tenderness Extremities: normal inspection, normal capillary refill, normal range of motion, no edema Neurologic/Psych: no motor/sensory deficits, awake, alert, oriented x 3, normal gait, normal mood/affect, photographic specialist II-XII nml as tested Reflexes: 2+: bicep (R), bicep (L). Skin: intact, normal color, warm/dry Lymphatic: no anterior cervical trina Core Measures ACS in differential dx? No CVA/TIA Diagnosis No Sepsis Present: No Sepsis Focused Exam Completed? No Progress Differential Diagnosis: atrial fibrillation, hyperkalemia, hyperthyroid, PSVT Plan of Care: Orders Procedure Date/time Status TOTAL TRIODOTHYROXINE 07/19 0400 Complete FREE T4 07/19 0400 Complete TSH REFLEX 07/19 0337 Complete TROPONIN LEVEL 07/19 0337 Complete MAGNESIUM 07/19 0337 Complete COMPREHENSIVE METABOLIC PANEL 07/19 0337 Complete CBC WITHOUT DIFFERENTIAL 07/19 336 Complete EKG 07/19 0326 Active Laboratory Tests 07/19/17 0400: Anion Gap 14, Estimated GFR > 60, BUN/Creatinine Ratio 28.3 H, Glucose 214 H, Calcium 9.7, Magnesium 1.7, Total Bilirubin 0.4, AST 16, ALT 31, Alkaline Phosphatase 93, Troponin I 0.02, Total Protein 6.6, Albumin 3.9, Globulin 2.7, Albumin/Globulin Ratio 1.4, Free T4 1.04, Total T3 1.68, TSH &T3 &Free T4 Intrp 7.070 H, CBC w Diff NO MAN DIFF REQ, RBC 4.89, MCV 90.2, MCH 30.2, MCHC 33.5, RDW 13.2, MPV 7.9, Gran % 67.4, Lymphocytes % 25.2, Monocytes % 6.0, Eosinophils % 1.1, Basophils % 0.3, Absolute Granulocytes 8.7 H, Absolute Lymphocytes 3.3, Absolute Monocytes 0.8 H, Absolute Eosinophils 0.1, Absolute Basophils 0 Initial ED EKG: AFIB, no ST T wave changes Prior EKG: changed Rhythm Strip: atrial fibrillation Departure Departure Time of Disposition: 629 Disposition: HOME OR SELF CARE Condition: Stable Clinical Impression Primary Impression: Atrial fibrillation with rapid ventricular response Referrals: Janak RODRIGUEZ,Kim Hdz (PCP/Family) Juaquin Fairchild MD Additional Instructions: Increase your metoprolol to 50 mg in the morning and 25 mg at night Departure Forms: Customer Survey General Discharge Information Prescriptions: Current Visit Scripts Apixaban (Eliquis) 1 TAB PO BID #60 TAB Critical Care Note Critical Care Note Critical Care Time: 30-74 min (45)
[2017-07-19 04:10] LABS: ABSOLUTE BASOPHIL COUNT 0 /CUMM (0.0-0.2); ABSOLUTE EOSINOPHIL COUNT 0.1 /CUMM (0.0-0.7); ABSOLUTE GRANULOCYTE CT 8.7 /CUMM (1.4-6.5); ABSOLUTE LYMPH COUNT 3.3 /CUMM (1.2-3.4); ABSOLUTE MONOCYTE COUNT 0.8 /CUMM (0.10-0.60); BASOPHIL % 0.3 % (0.0-2.0); EOSINOPHIL % 1.1 % (0-5); GRANULOCYTE % 67.4 % (42.2-75.2); HEMATOCRIT 44.1 % (37-47); MEAN CORPUSCULAR HGB 30.2 PG (27.0-31.0); MEAN CORPUSCULAR HGB CONC 33.5 G/DL (33.0-37.0); MEAN CORPUSCULAR VOLUME 90.2 FL (81.0-99.0); MEAN PLATELET VOLUME 7.9 FL (7.4-10.4); PLATELET COUNT 272 /CUMM (130-400); RBC DISTRIBUTION WIDTH 13.2 % (11.5-14.5); RED BLOOD CELL CT 4.89 /CUMM (4.20-5.40)
[2017-07-19] MEDS ORDERED: ELIQUIS5 M1 PO (06:35)
[2017-07-19] MEDS ORDERED: SERTRALINE HCL25 MG PO (09:56)
[2017-07-19 12:00] VITALS: BP 102/70
[2017-07-19] MEDS ORDERED: LOPRESSOR50 M1 PO (12:00)
== END 2017-07-19 11:59 ==
LOC: ERH 03:25
PROVIDERS: Emergency Medicine
DX: I48.91 Unspecified atrial fibrillation (principal); R07.89 Other chest pain
CPT/HCPCS: 93005; 93010; 96374; 96375; 96376

== ENCOUNTER 2017-08-14 19:36 | Emergency (ER) | payer OTHER ==
[~2017-08-14 19:36] MED LIST changes: +ELIQUIS5 M1 PO; +LOPRESSOR50 M1 PO; +SERTRALINE HCL25 MG PO
[2017-08-14 20:02] LABS: ABSOLUTE BASOPHIL COUNT 0 /CUMM (0.0-0.2); ABSOLUTE EOSINOPHIL COUNT 0.1 /CUMM (0.0-0.7); ABSOLUTE GRANULOCYTE CT 7.2 /CUMM (1.4-6.5); ABSOLUTE LYMPH COUNT 3.1 /CUMM (1.2-3.4); ABSOLUTE MONOCYTE COUNT 0.7 /CUMM (0.10-0.60); BASOPHIL % 0.2 % (0.0-2.0); EOSINOPHIL % 1.2 % (0-5); GRANULOCYTE % 64.3 % (42.2-75.2); HEMATOCRIT 42.2 % (37-47); MEAN CORPUSCULAR HGB 29.9 PG (27.0-31.0); MEAN CORPUSCULAR HGB CONC 33.3 G/DL (33.0-37.0); MEAN CORPUSCULAR VOLUME 89.9 FL (81.0-99.0); MEAN PLATELET VOLUME 7.6 FL (7.4-10.4); PLATELET COUNT 270 /CUMM (130-400); RBC DISTRIBUTION WIDTH 12.9 % (11.5-14.5); RED BLOOD CELL CT 4.69 /CUMM (4.20-5.40); WHITE BLOOD CELL COUNT 11.2 /CUMM (4.8-10.8)
--- NOTE | 2017-08-14 20:11 | ED CARDIAC/CP/PALPITATIONS ---
History of Present Illness General Chief Complaint: General Adult Stated Complaint: HEART RACING,FLUTTER, "I HAVE AFIB" Source: patient, old records Exam Limitations: no limitations Vital Signs & Intake/Output Vital Signs & Intake/Output Vital Signs Date Time Temp Pulse Resp B/P B/P Pulse O2 O2 Flow FiO2 Mean Ox Delivery Rate 08/14 2136 Room Air 08/14 2102 97.8 92 18 131/80 96 Room Air 08/14 2049 96.7 101 18 166/99 08/14 1944 96.7 101 18 99 97 Room Air Allergies Coded Allergies: metformin (From GLUMETZA) (Severe, RASH FROM GLUMETZA BRAND - HIVES 03/10/17) Penicillins (PT WAS A BABY AND DOES NOT KNOW REACTION 03/10/17) Sulfa (Sulfonamide Antibiotics) (LARYNGEAL EDEMA, HIVES 03/10/17) codeine (RASH, HIVES, GI 03/10/17) ibuprofen (LARYNGEAL EDEMA 03/10/17) pseudoephedrine (CAUSES HEART PALPITATIONS, SHAKEY AND NERVOUS 03/10/17) Reconcile Medications Alprazolam 0.5 MG TABLET 1 TAB PO TIDPRN ANXIETY (Reported) Apixaban (Eliquis) 5 MG TABLET 1 TAB PO BID afib Metoprolol Succinate 25 MG TAB 1 TAB PO BID HEART (Reported) Metoprolol Tartrate (Lopressor) 50 MG TABLET 1 TAB PO QAM HEART RATE TAKE 1 TABLET IN THE MORNING AND HALF A TABLET IN THE EVENING Sertraline HCl 25 MG TABLET 1 TAB PO DAILY MENTAL HEALTH (Reported) Core Measure Meds Pre-Hospital Eliquis Triage Note: PT TO TRIAGE C/O FEELING "HEART FLUTTERING ALL DAY." PT DENIES PAIN OR SOB, BUT STATES "I HAVE ANXIETY." PER PT DX WITH AFIB IN JULY HERE AT [facility] AND STARTED ON ELIQUIS. PER PT TOOK ELIQUIS AT 7PM. EKG SHOWING AFIB 111, SHOWN TO . BLOOD WORK IN PROGRESS. Triage Nurses Notes Reviewed? yes Onset: Afternoon Duration: hour(s):, constant, continues in ED Timing: recent history Quality/Severity: moderate, tightness Location: substernal Radiation: no radiation Activities at Onset: rest Prior Chest Pain/Card Workup: echocardiography, stress test Nitro Today/Relief: no nitro taken today Aspirin Today: no aspirin today Associated Symptoms: diaphoresis LMP (ages 10-50): unknown : No Patient currently breastfeeds: No HPI: Afternoon prior to admission patient complained of palpitations chest tightness diaphoresis. She denies fever chills nausea vomiting diarrhea abdominal pain shortness of breath dysuria rash headache bleeding. Past History Travel History Traveled to [place] past 21 day No Medical History Any Pertinent Medical History? 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 History of MRSA: Yes History of VRE: No History of CDIFF: No Surgical History Surgical History: cholecystectomy, , hysterectomy Psychosocial History Who do you live with Family Services at Home None What is your primary language Indonesian Tobacco Use: Quit <30 days ago Family History Family History, If Any: Relation not specified for: Diabetes mellitus in father Diabetes mellitus in mother Hypertension in father Hx Contributory? No Review of Systems Review of Systems Constitutional: Reports: see HPI, chills, diaphoresis. EENTM: Reports: no symptoms. Respiratory: Reports: no symptoms. Cardiovascular: Reports: see HPI, chest pain. GI: Reports: no symptoms. Genitourinary: Reports: no symptoms. Musculoskeletal: Reports: no symptoms. Skin: Reports: no symptoms. Neurological/Psychological: Reports: no symptoms. Hematologic/Endocrine: Reports: no symptoms. Immunologic/Allergic: Reports: no symptoms. All Other Systems: Reviewed and Negative Physical Exam Physical Exam General Appearance: well developed/nourished, alert, awake, anxious, comfortable , obese Head: atraumatic, normal appearance Eyes: Bilateral: normal appearance, PERRL, EOMI. Ears, Nose, Throat: normal pharynx, normal ENT inspection, hearing grossly normal Neck: normal inspection, supple, full range of motion, no midline tenderness Respiratory: normal breath sounds, chest non-tender, no respiratory distress, quiet respiration, lungs clear Cardiovascular: regular rate/rhythm, normal peripheral pulses, norml femoral pulses equa Peripheral Pulses: 4+ carotid (R), 4+ carotid (L) Gastrointestinal: normal bowel sounds, soft, non-tender, no organomegaly Back: normal inspection, normal range of motion, no vertebral tenderness Extremities: normal inspection, normal capillary refill, normal range of motion, no edema Neurologic/Psych: no motor/sensory deficits, awake, alert, oriented x 3, normal gait, normal mood/affect, glass checker II-XII nml as tested Reflexes: 2+: bicep (R), bicep (L). Skin: intact, normal color, warm/dry Lymphatic: no anterior cervical trina Core Measures ACS in differential dx? Yes No ASA d/t Pharmacological CI CVA/TIA Diagnosis No Sepsis Present: No Sepsis Focused Exam Completed? No Progress Differential Diagnosis: atrial fibrillation, hyperkalemia, hypovolemia, hyperthyroid Plan of Care: Orders Procedure Date/time Status URINE DRUG SCREEN FOR ER ONLY 08/14 1938 Complete URINALYSIS 08/14 1938 Complete TSH REFLEX 08/14 1938 Complete TROPONIN LEVEL 08/14 1938 Complete MAGNESIUM 08/14 1938 Complete D-DIMER 08/14 1938 Complete COMPREHENSIVE METABOLIC PANEL 08/14 1938 Complete CBC WITHOUT DIFFERENTIAL 08/14 1938 Complete EKG 08/14 1936 Active Laboratory Tests 08/14/17 2104: Urine Opiates Screen < 100, Methadone Screen < 40, Barbiturate Screen < 60, Ur Phencyclidine Scrn < 6.00, Amphetamines Screen < 100, U Benzodiazepines Scrn > 800 H, Urine Cocaine Screen < 50, Urine Cannabis Screen < 5.00, Urine Color YEL , Urine Clarity CLEAR, Urine pH 6.0, Ur Specific [place] >= 1.030, Urine Protein NEG, Urine Ketones NEG, Urine Nitrite NEG, Urine Bilirubin NEG, Urine Urobilinogen 0.2, Ur Leukocyte Esterase NEG, Ur Microscopic EXAM NOT REQUIRED, Urine Hemoglobin NEG, Urine Glucose NEG 08/14/17 1950: Anion Gap 10, Estimated GFR > 60, BUN/Creatinine Ratio 21.4, Glucose 156 H, Calcium 9.3, Magnesium 1.7, Total Bilirubin 0.4, AST 16, ALT 31, Alkaline Phosphatase 96, Troponin I < 0.01, Total Protein 6.7, Albumin 4.0, Globulin 2.7, Albumin/Globulin Ratio 1.5, TSH &T3 &Free T4 Intrp 3.260, D-Dimer High Sensitivty < 200, CBC w Diff NO MAN DIFF REQ, RBC 4.69, MCV 89.9, MCH 29.9, MCHC 33.3, RDW 12.9, MPV 7.6, Gran % 64.3, Lymphocytes % 27.7, Monocytes % 6.6, Eosinophils % 1.2, Basophils % 0.2, Absolute Granulocytes 7.2 H, Absolute Lymphocytes 3.1, Absolute Monocytes 0.7 H, Absolute Eosinophils 0.1, Absolute Basophils 0 Initial ED EKG: normal axis, normal intervals, normal p-waves, normal QRS complex, normal sinus rhythm, rhythm (sinus tachycardia) Prior EKG: changed (previous afib) Rhythm Strip: sinus tachycardia Departure Departure Time of Disposition: 2151 Disposition: HOME OR SELF CARE Condition: Stable Clinical Impression Primary Impression: Palpitations Secondary Impressions: Sinus tachycardia Referrals: Janak RODRIGUEZ,Kim Hdz (PCP/Family) Juaquin Fairchild MD Departure Forms: Customer Survey General Discharge Information Critical Care Note Critical Care Note Critical Care Time: 30-74 min (35)
[2017-08-14 22:16] VITALS: BP 138/82
== END 2017-08-14 22:18 ==
LOC: ERH 19:36
PROVIDERS: Physician Assistant Medical
DX: R00.2 Palpitations (principal); R00.0 Tachycardia, unspecified; R07.89 Other chest pain
CPT/HCPCS: 80307; 81003; 93005; 93010; 96374; 99291

== ENCOUNTER 2017-10-14 10:27 | Emergency (ER) | payer OTHER ==
[~2017-10-14] VITALS: Ht 167.6 cm; Wt 154.2 kg
--- NOTE | 2017-10-14 12:37 | ED GENERAL ADULT ---
History of Present Illness General Chief Complaint: Dyspnea (COPD, CHF, Other) Stated Complaint: SOB, HIGH HEART RATE, DIZZY Source: patient Exam Limitations: no limitations Vital Signs & Intake/Output Vital Signs & Intake/Output Vital Signs Date Time Temp Pulse Resp B/P B/P Pulse O2 O2 Flow FiO2 Mean Ox Delivery Rate 10/14 1423 98.1 70 20 132/71 98 Room Air 10/14 1033 97.2 81 20 136/83 98 Room Air Allergies Coded Allergies: metformin (From GLUMETZA) (Severe, RASH FROM GLUMETZA BRAND - HIVES 10/01/17) Penicillins (PT WAS A BABY AND DOES NOT KNOW REACTION 10/01/17) Sulfa (Sulfonamide Antibiotics) (LARYNGEAL EDEMA, HIVES 10/01/17) codeine (RASH, HIVES, GI 10/01/17) ibuprofen (LARYNGEAL EDEMA 10/01/17) pseudoephedrine (CAUSES HEART PALPITATIONS, SHAKEY AND NERVOUS 10/01/17) Reconcile Medications Alprazolam 0.5 MG TABLET 1 TAB PO TIDPRN ANXIETY (Reported) Apixaban (Eliquis) 5 MG TABLET 1 TAB PO BID afib Metoprolol Succinate 200 MG TAB.ER.24H 1 TAB PO DAILY HEART (Reported) Sertraline HCl 25 MG TABLET 1 TAB PO DAILY MENTAL HEALTH (Reported) Triage Note: PT TO ED C/O "WAKING UP GASPING FOR AIR AND HEART RACING". HEARTRATE 81, RA SATS 98%. PT C/O ANXIETY ATTACK, H/O SAME. APPEARS ANXIOUS. Triage Nurses Notes Reviewed? yes Onset: Abrupt Duration: hour(s): Timing: resovled : No Patient currently breastfeeds: No HPI: 47-year-old female with a history of A. fib, migraines, IBS, diabetes, and anxiety presenting status post an episode of palpitations and shortness of breath when she woke up this morning. Patient reports that she was "gasping for air when she woke up." Episode lasted approximately 5 minutes before self resolving. Is currently managed on metoprolol for her A. fib and reports med compliance. Denies any associated chest pain or lightheadedness. No recent fevers or infectious symptoms. (Alo RODRIGUEZ,Skylar) Past History Travel History Traveled to [place] past 21 day No Medical History Any Pertinent Medical History? 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 History of MRSA: Yes History of VRE: No History of CDIFF: No Surgical History Surgical History: cholecystectomy, (x 4), hysterectomy Psychosocial History Who do you live with Family Services at Home None What is your primary language German Tobacco Use: Quit >30 days ago ETOH Use: denies use Illicit Drug Use: denies illicit drug use Family History Family History, If Any: Relation not specified for: Diabetes mellitus in father Diabetes mellitus in mother Hypertension in father Hx Contributory? No (Skylar Summers) Review of Systems Review of Systems Constitutional: Reports: no symptoms. EENTM: Reports: no symptoms. Respiratory: Reports: see HPI. Cardiovascular: Reports: see HPI. GI: Reports: no symptoms. Genitourinary: Reports: no symptoms. Musculoskeletal: Reports: no symptoms. Skin: Reports: no symptoms. Neurological/Psychological: Reports: no symptoms. Hematologic/Endocrine: Reports: no symptoms. Immunologic/Allergic: Reports: no symptoms. (Skylar Summers) Physical Exam Physical Exam General Appearance: well developed/nourished, no apparent distress, alert, awake , comfortable Head: atraumatic, normal appearance Eyes: Bilateral: normal appearance. Neck: normal inspection Respiratory: normal breath sounds, no respiratory distress, lungs clear Cardiovascular: regular rate/rhythm Gastrointestinal: soft, non-tender Back: normal inspection Extremities: normal inspection Neurologic/Psych: awake, alert, oriented x 3, normal gait, normal mood/affect Skin: intact, normal color, warm/dry Core Measures ACS in differential dx? No CVA/TIA Diagnosis: No Sepsis Present: No Sepsis Focused Exam Completed? No (Skylar Summers) Progress Differential Diagnoses I considered the following diagnoses in my evaluation of the patient: [A. fib versus a slight derangement versus thyroid imbalance versus ACS versus PATRICK] Plan of Care: Orders Procedure Date/time Status TSH REFLEX 10/14 1311 Complete PHOSPHORUS 10/14 1311 Complete MAGNESIUM 10/14 1311 Complete CBC WITHOUT DIFFERENTIAL 10/14 1311 Complete BASIC METABOLIC PANEL 10/14 131 Complete EKG 10/14 1311 Active Laboratory Tests 10/14/17 1330: Anion Gap 12, Estimated GFR > 60, BUN/Creatinine Ratio 21.4, Glucose 155 H, Calcium 9.2, Phosphorus 4.1, Magnesium 1.8, TSH &T3 &Free T4 Intrp 1.720, CBC w Diff NO MAN DIFF REQ, RBC 4.65, MCV 88.8, MCH 30.3, MCHC 34.1, RDW 12.7, MPV 7.5 , Gran % 74.4, Lymphocytes % 19.7 L, Monocytes % 4.9, Eosinophils % 0.8, Basophils % 0.2, Absolute Granulocytes 8.4 H, Absolute Lymphocytes 2.2, Absolute Monocytes 0.6, Absolute Eosinophils 0.1, Absolute Basophils 0 EKG showed sinus rhythm Labs were unremarkable Patient has remained asymptomatic Patient may have had an episode of transient A. fib versus PATRICK Instructed to follow-up with her marble installation helper for reevaluation, and to follow-up with her PMD for referral for sleep study to rule out PATRICK Counseled on supportive care and strict return precautions. Initial ED EKG: NSR, no ST T wave changes (Skylar Summers) Departure Departure Disposition: HOME OR SELF CARE Condition: Stable Clinical Impression Primary Impression: Palpitations Referrals: Kim Angel (PCP/Family) Additional Instructions: Follow up with your primary care provider and your marble installation helper for re- evaluation. Return to the emergency department for any new or worsening symptoms. Departure Forms: Customer Survey General Discharge Information (Skylar Summers) PA/RELAY SHOP TESTER Co-Sign Statement Statement: ED Attending supervision documentation- I saw and evaluated the patient. I have also reviewed all the pertinent lab results and diagnostic results. I agree with the findings and the plan of care as documented in the PA's/RELAY SHOP TESTER's documentation. x I have reviewed the ED Record and agree with the PA's/RELAY SHOP TESTER's documentation. [] Additions or exceptions (if any) to the PAs/RELAY SHOP TESTER's note and plan are summarized below: [] (Vitaliy RANDOLPH,Eddie) Critical Care Note Critical Care Note Critical Care Time: non-applicable (Skylar Summers)
[2017-10-14 13:40] LABS: ABSOLUTE BASOPHIL COUNT 0 /CUMM (0.0-0.2); ABSOLUTE EOSINOPHIL COUNT 0.1 /CUMM (0.0-0.7); ABSOLUTE GRANULOCYTE CT 8.4 /CUMM (1.4-6.5); ABSOLUTE LYMPH COUNT 2.2 /CUMM (1.2-3.4); ABSOLUTE MONOCYTE COUNT 0.6 /CUMM (0.10-0.60); BASOPHIL % 0.2 % (0.0-2.0); EOSINOPHIL % 0.8 % (0-5); GRANULOCYTE % 74.4 % (42.2-75.2); HEMATOCRIT 41.3 % (37-47); MEAN CORPUSCULAR HGB 30.3 PG (27.0-31.0); MEAN CORPUSCULAR HGB CONC 34.1 G/DL (33.0-37.0); MEAN CORPUSCULAR VOLUME 88.8 FL (81.0-99.0); MEAN PLATELET VOLUME 7.5 FL (7.4-10.4); PLATELET COUNT 266 /CUMM (130-400); RBC DISTRIBUTION WIDTH 12.7 % (11.5-14.5); RED BLOOD CELL CT 4.65 /CUMM (4.20-5.40); WHITE BLOOD CELL COUNT 11.3 /CUMM (4.8-10.8)
--- NOTE | 2017-10-14 14:57 | RADIOLOGY REPORT ---
EXAMINATION: XR CHEST CLINICAL INFORMATION: Palpitations COMPARISON: Prior chest April 2017 TECHNIQUE: 2 views of the chest were obtained. FINDINGS: No significant abnormality is noted involving the heart, lungs, mediastinum, bony thorax or soft tissues. IMPRESSION: Unremarkable examination.
[2017-10-14] MEDS ORDERED: METOPROLOL SUC200 M2 PO (15:10)
[2017-10-14 16:17] VITALS: BP 154/7
== END 2017-10-14 16:13 ==
LOC: ERH 10:27
PROVIDERS: Physician Assistant
DX: R00.2 Palpitations (principal); R06.02 Shortness of breath
CPT/HCPCS: 71046; 93005; 93010

== ENCOUNTER 2017-11-11 20:48 | Emergency (ER) | payer OTHER ==
[~2017-11-11] VITALS: Ht 167.6 cm; Wt 156.9 kg
[~2017-11-11 20:48] MED LIST changes: +METOPROLOL SUC200 M2 PO
[2017-11-11 21:10] VITALS: BP 148/88
[2017-11-11 22:12] LABS: ABSOLUTE BASOPHIL COUNT 0 /CUMM (0.0-0.2); ABSOLUTE EOSINOPHIL COUNT 0.2 /CUMM (0.0-0.7); ABSOLUTE GRANULOCYTE CT 6.1 /CUMM (1.4-6.5); ABSOLUTE LYMPH COUNT 2.7 /CUMM (1.2-3.4); ABSOLUTE MONOCYTE COUNT 0.8 /CUMM (0.10-0.60); BASOPHIL % 0.3 % (0.0-2.0); EOSINOPHIL % 1.6 % (0-5); GRANULOCYTE % 62.4 % (42.2-75.2); HEMATOCRIT 43.2 % (37-47); MEAN CORPUSCULAR HGB 29.7 PG (27.0-31.0); MEAN CORPUSCULAR HGB CONC 32.9 G/DL (33.0-37.0); MEAN CORPUSCULAR VOLUME 90.1 FL (81.0-99.0); MEAN PLATELET VOLUME 7.5 FL (7.4-10.4); PLATELET COUNT 261 /CUMM (130-400); RBC DISTRIBUTION WIDTH 12.8 % (11.5-14.5); WHITE BLOOD CELL COUNT 9.8 /CUMM (4.8-10.8)
[2017-11-11 22:29] LABS: PT 11.9 SEC (9.4-12.5); PTT 32 SEC (25-37)
--- NOTE | 2017-11-12 00:59 | ED GI/GU/ABDOMINAL COMPLAINT ---
History of Present Illness General Chief Complaint: Abdominal Pain/Flank Pain Stated Complaint: "IM HAVING REALLY BAD STOMACH PAINS" Source: patient Exam Limitations: no limitations Vital Signs & Intake/Output Vital Signs & Intake/Output Vital Signs Date Time Temp Pulse Resp B/P B/P Pulse O2 O2 Flow FiO2 Mean Ox Delivery Rate 11/12 0047 98 Room Air 11/110 98.2 70 20 148/88 98 Room Air ED Intake and Output 11/12 0000 11/11 1200 Intake Total Output Total Balance Patient 346 lb Weight Allergies Coded Allergies: metformin (From GLUMETZA) (Severe, RASH FROM GLUMETZA BRAND - HIVES 10/01/17) Penicillins (PT WAS A BABY AND DOES NOT KNOW REACTION 10/01/17) Sulfa (Sulfonamide Antibiotics) (LARYNGEAL EDEMA, HIVES 10/01/17) codeine (RASH, HIVES, GI 10/01/17) ibuprofen (LARYNGEAL EDEMA 10/01/17) pseudoephedrine (CAUSES HEART PALPITATIONS, SHAKEY AND NERVOUS 10/01/17) Reconcile Medications Alprazolam 0.5 MG TABLET 1 TAB PO TIDPRN ANXIETY (Reported) Apixaban (Eliquis) 5 MG TABLET 1 TAB PO BID afib Diphenoxylate HCl/Atropine (Lomotil 2.5-0.025 MG Tablet) 2.5 MG-0.025 MG TABLET 1 TAB PO 4 TIMES/DAY diarrhea twenty.... [id number] Loperamide HCl (Imodium A-D) 2 MG CAPSULE 1 TAB PO TID PRN DIARRHEA TEN...[id number] Metoprolol Succinate 200 MG TAB.ER.24H 1 TAB PO DAILY HEART (Reported) Ondansetron (Zofran Odt) 4 MG TAB.RAPDIS 1 TAB SL TID PRN nausea Sertraline HCl 25 MG TABLET 1 TAB PO DAILY MENTAL HEALTH (Reported) Triage Note: 47F WITH TRANVERSE UPPER ABD PAIN X3 DAYS, WAS INTERMITTENT AND NOW CONSTANT TODAY. UNABLE TO HOLD ANYTHING IN DUE TO DIARRHEA. HX CHOLY. DENIES ETOH USE. +N/-V. ENDORSES WEAKNESS, FATIGUE AND DEHYDRATION. DENIES CP/SOB Triage Nurses Notes Reviewed? yes ? n Is pt currently ? No Onset: Gradual Duration: day(s): Timing: recent history Location: generalized abdomen Radiation: no radiation Modifying Factors: Worsens With: palpation. Associated Symptoms: abdominal pain HPI: 47 yo woman h/o ibs presents with several weeks of loose stool and 3 days of diffuse upper abdominal discomfort, without nausea, vomiting, chest pain, fever, dysuria. She notes that she is otherwise well. Past History Travel History Traveled to [place] past 21 day No Medical History Any Pertinent Medical History? 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 History of MRSA: Yes History of VRE: No History of CDIFF: No Surgical History Surgical History: cholecystectomy, (x 4), hysterectomy Psychosocial History Who do you live with Family Services at Home None What is your primary language Malawian Tobacco Use: Never used Family History Family History, If Any: Relation not specified for: Diabetes mellitus in father Diabetes mellitus in mother Hypertension in father Hx Contributory? No Review of Systems Review of Systems Constitutional: Denies: see HPI. EENTM: Reports: no symptoms. Respiratory: Reports: no symptoms. Cardiovascular: Reports: no symptoms. GI: Reports: no symptoms. Genitourinary: Reports: no symptoms. Musculoskeletal: Reports: no symptoms. Skin: Reports: no symptoms. Neurological/Psychological: Reports: no symptoms. Hematologic/Endocrine: Reports: no symptoms. Immunologic/Allergic: Reports: no symptoms. All Other Systems: Reviewed and Negative Physical Exam Physical Exam General Appearance: well developed/nourished, no apparent distress, alert, comfortable Head: atraumatic, normal appearance Eyes: Bilateral: normal appearance. Ears, Nose, Throat, Mouth: hearing grossly normal, moist mucous membrane Neck: normal inspection, supple, full range of motion Respiratory: normal breath sounds, chest non-tender, no respiratory distress, quiet respiration, lungs clear Cardiovascular: regular rate/rhythm Gastrointestinal: diffuse mid epigastric tenderness to palpation. no rlq tenderness , no ken's sign. no rebound or guarding. Back: normal inspection Extremities: normal range of motion Neurologic/Psych: no motor/sensory deficits, awake, alert, oriented x 3 Skin: intact, normal color, warm/dry Core Measures ACS in differential dx? No Sepsis Present: No Sepsis Focused Exam Completed? No Progress Differential Diagnosis: ibs food poisoning viral process vs other. Plan of Care: Orders Procedure Date/time Status PARTIAL THROMBOPLASTIN TIME 11/12 2111 Complete PROTHROMBIN TIME 11/12 2111 Complete LIPASE 11/12 2111 Complete LACTIC ACID 11/12 2111 Complete COMPREHENSIVE METABOLIC PANEL 11/12 2111 Complete CBC WITHOUT DIFFERENTIAL 11/12 2111 Complete Laboratory Tests 11/12/17 0012: Lactic Acid Cancelled 11/11/175: Anion Gap 11, Estimated GFR > 60, BUN/Creatinine Ratio 17.1, Glucose 149 H, Lactic Acid 1.1, Calcium 9.2, Total Bilirubin 0.3, AST 22, ALT 40, Alkaline Phosphatase 100, Total Protein 6.8, Albumin 4.1, Globulin 2.7, Albumin/Globulin Ratio 1.5, Lipase 150, PT 11.9, INR 1.09, APTT 32, CBC w Diff NO MAN DIFF REQ, RBC 4.80, MCV 90.1, MCH 29.7, MCHC 32.9 L, RDW 12.8, MPV 7.5, Gran % 62.4, Lymphocytes % 27.7, Monocytes % 8.0, Eosinophils % 1.6, Basophils % 0.3, Absolute Granulocytes 6.1, Absolute Lymphocytes 2.7, Absolute Monocytes 0.8 H, Absolute Eosinophils 0.2, Absolute Basophils 0 Initial ED EKG: none Departure Departure Disposition: HOME OR SELF CARE Condition: Stable Clinical Impression Primary Impression: Diarrhea Secondary Impressions: Irritable bowel syndrome Referrals: Janak RODRIGUEZ,Kim Hdz (PCP/Family) Departure Forms: Customer Survey General Discharge Information Prescriptions: Current Visit Scripts Diphenoxylate HCl/Atropine (Lomotil 2.5-0.025 MG Tablet) 1 TAB PO 4 TIMES/DAY #20 TAB twenty.... [id number] Ondansetron (Zofran Odt) 1 TAB SL TID PRN nausea #10 TAB Loperamide HCl (Imodium A-D) 1 TAB PO TID PRN DIARRHEA #10 TAB TEN...[id number] Comments discussed at length... pt with benign exam... labs benign.. will defer ct scan and pursue supportive care... pt to return if not feeling better.
[2017-11-12] MEDS ORDERED: LOMOTIL 2.5-0.1 EACH PO (01:04)
[2017-11-12] MEDS ORDERED: ZOFRAN ODT4 M1 SL (01:04)
[2017-11-12] MEDS ORDERED: IMODIUM A-D2 M2 PO (01:22)
== END 2017-11-12 01:01 ==
LOC: ERH 20:48
PROVIDERS: Emergency Medicine
DX: K58.0 Irritable bowel syndrome with diarrhea (principal); R10.9 Unspecified abdominal pain
CPT/HCPCS: J3101

== ENCOUNTER 2017-12-04 13:19 | Emergency (ER) | payer OTHER ==
[~2017-12-04] VITALS: Ht 167.6 cm; Wt 155.1 kg
[~2017-12-04 13:19] MED LIST changes: +CLEOCIN HCL150 M1 PO; +IMODIUM A-D2 M2 PO; +LIDOCAINE HCL5 ML TOP; +MEPERIDINE HCL50 M1 PO
--- NOTE | 2017-12-04 14:20 | ED GENERAL ADULT ---
History of Present Illness General Chief Complaint: General Adult Stated Complaint: PT IS HAVING PAIN THE BLADDER, PRESSURE PUSHING Source: patient Exam Limitations: no limitations Vital Signs & Intake/Output Vital Signs & Intake/Output Vital Signs Date Time Temp Pulse Resp B/P B/P Pulse O2 O2 Flow FiO2 Mean Ox Delivery Rate 12/04 1443 98.0 80 20 110/70 98 Room Air 12/04 1330 97.6 73 20 101/64 96 Room Air Allergies Coded Allergies: metformin (From GLUMETZA) (Severe, RASH FROM GLUMETZA BRAND - HIVES 10/01/17) Penicillins (PT WAS A BABY AND DOES NOT KNOW REACTION 10/01/17) Sulfa (Sulfonamide Antibiotics) (LARYNGEAL EDEMA, HIVES 10/01/17) codeine (RASH, HIVES, GI 10/01/17) ibuprofen (LARYNGEAL EDEMA 10/01/17) pseudoephedrine (CAUSES HEART PALPITATIONS, SHAKEY AND NERVOUS 10/01/17) Reconcile Medications Alprazolam 0.5 MG TABLET 1 TAB PO TIDPRN ANXIETY (Reported) Apixaban (Eliquis) 5 MG TABLET 1 TAB PO BID afib Clindamycin HCl (Cleocin HCl) 150 MG CAPSULE 1 CAP PO TID gingivitis Diphenoxylate HCl/Atropine (Lomotil 2.5-0.025 MG Tablet) 2.5 MG-0.025 MG TABLET 1 TAB PO 4 TIMES/DAY diarrhea twenty.... [id number] Lidocaine HCl 2 % JEL..ML. 1 SHARAN TOP Q6H PRN pain Loperamide HCl (Imodium A-D) 2 MG CAPSULE 1 TAB PO TID PRN DIARRHEA TEN...[id number] Meperidine HCl 50 MG TABLET 1 TAB PO Q6H PRN severe pain Metoprolol Succinate 200 MG TAB.ER.24H 1 TAB PO DAILY HEART (Reported) Ondansetron (Zofran Odt) 4 MG TAB.RAPDIS 1 TAB SL TID PRN nausea Sertraline HCl 25 MG TABLET 1 TAB PO DAILY MENTAL HEALTH (Reported) Triage Note: PT C/O PAINS IN HER BLADDER X 10 DAYS. STATES SHE SAW DR PANDEY ABOUT 10 DAYS AGO D/T UTI, CULTURE WAS NEG. STATES SHE IS FEELING A LOT OF PRESSURE IN HER VAGINAL AREA AND HAVING SHOOTING PAINS ACROSS HER PELVIC AREA. DENIES BURNING WITH URINATION Triage Nurses Notes Reviewed? yes Onset: Abrupt Duration: day(s): Timing: constant : No Patient currently breastfeeds: No HPI: 47-year-old female with a history of migraines, A. fib, IBS, diabetes, obesity, anxiety presenting with vaginal pain 10 days. Patient reports that she was seen by her PODIATRY PROFESSOR approximately 1 month ago and treated for trichomonas. She completed a course of Flagyl and followed up for repeat trichomonas testing which was negative. She has since developed stress incontinence and followed up with urology for evaluation 10 days ago. States that during her exam the urologist inserted her fingers into the vaginal canal to palpate posterior bladder. Patient states that during this exam she developed abrupt onset of pain, feels as though the exam was "rough." Has had persistent pain since then. Occasionally the pain will radiate to her lower abdomen. Denies dysuria, hematuria, vaginal bleeding, vaginal discharge. Patient is status post hysterectomy 2010. (Skylar Summers) Past History Travel History Traveled to [place] past 21 day No Medical History Any Pertinent Medical History? 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 History of MRSA: Yes History of VRE: No History of CDIFF: No Surgical History Surgical History: cholecystectomy, (x 4), hysterectomy Psychosocial History Who do you live with Family Services at Home None What is your primary language Occitan Tobacco Use: Quit >30 days ago ETOH Use: denies use Illicit Drug Use: denies illicit drug use Family History Family History, If Any: Relation not specified for: Diabetes mellitus in father Diabetes mellitus in mother Hypertension in father Hx Contributory? No (Skylar Summers) Review of Systems Review of Systems Constitutional: Reports: no symptoms. EENTM: Reports: no symptoms. Respiratory: Reports: no symptoms. Cardiovascular: Reports: no symptoms. GI: Reports: no symptoms. Genitourinary: Reports: see HPI. Musculoskeletal: Reports: no symptoms. Skin: Reports: no symptoms. Neurological/Psychological: Reports: no symptoms. Hematologic/Endocrine: Reports: no symptoms. Immunologic/Allergic: Reports: no symptoms. All Other Systems: Reviewed and Negative (Skylar Summers) Physical Exam Physical Exam General Appearance: well developed/nourished, no apparent distress, alert, awake , comfortable Comments: Gen.: Well-nourished, well-developed, no acute distress. Head: Normocephalic, atraumatic. Eyes: Normal inspection bilaterally Ears: Normal inspection bilaterally Nose: Normal inspection Neck: Normal inspection Lungs: clear to auscultation bilaterally, normnal breath sounds Heart: regular rate and rhythm Abdomen: soft and non-tender Pelvic: No external labial tears or lacerations, no tears or lacerations to the vaginal mucosa of the inner vaginal canal, no vaginal bleeding, and bimanual exam patient has tenderness to the anterior vaginal wall over the bladder Back: No CVA tenderness Extremities: Normal inspection Neurologic: alert and oriented x3, steady gait Skin: warm and dry Psychiatric: Normal mood and affect, no apparent delusions or hallucinations, behavior appropriate Core Measures ACS in differential dx? No CVA/TIA Diagnosis: No Sepsis Present: No Sepsis Focused Exam Completed? No (Skylar Summers) Progress Differential Diagnoses I considered the following diagnoses in my evaluation of the patient: [Vaginal tear versus vaginal laceration versus UTI versus vaginitis] Plan of Care: Orders Procedure Date/time Status CULTURE,URINE 12/04 1329 Active URINE 12/04 1329 Complete URINALYSIS 12/04 1329 Complete CBC WITHOUT DIFFERENTIAL 12/04 1329 Complete BASIC METABOLIC PANEL 12/04 1329 Complete Laboratory Tests 12/04/17 1442: Anion Gap 8, Estimated GFR > 60, BUN/Creatinine Ratio 23.3, Glucose 243 H, Calcium 9.2, CBC w Diff NO MAN DIFF REQ, RBC 4.54, MCV 89.0, MCH 30.1, MCHC 33.8 , RDW 12.7, MPV 8.1, Gran % 62.0, Lymphocytes % 29.1, Monocytes % 7.2, Eosinophils % 1.4, Basophils % 0.3, Absolute Granulocytes 5.5, Absolute Lymphocytes 2.6, Absolute Monocytes 0.6, Absolute Eosinophils 0.1, Absolute Basophils 0 12/04/17 1425: Urine Color YEL, Urine Clarity CLEAR, Urine pH 6.0, Ur Specific [place] >= 1.030 , Urine Protein NEG, Urine Ketones NEG, Urine Nitrite NEG, Urine Bilirubin NEG, Urine Urobilinogen 0.2, Ur Leukocyte Esterase NEG, Ur Microscopic EXAM NOT REQUIRED, Urine Hemoglobin NEG, Urine Glucose >=1000 H, Urine Test NEGATIVE Microbiology 12/04 1425 URINE ROUT: Urine Culture - RECD Labs show hyperglycemia to 243. Patient states that she ate an [employer] bar prior to arrival. She was also supposed to start a diabetes medication, which she has not started yet. No evidence of DKA and she is well-appearing. Patient counseled that she needs to begin her diabetes medication. No clear etiology for her vaginal pain, exam is benign and UA shows no signs of infection. She was instructed to follow-up with FOOD SCIENCE PROFESSOR and urology for reevaluation of her pain. Patient states that she will be switching to Dr. Duffy for urology and has a consultation appointment next Saturday. Given strict return precautions. Initial ED EKG: none (Skylar Summers) Departure Departure Disposition: HOME OR SELF CARE Condition: Stable Clinical Impression Primary Impression: Vaginal pain Secondary Impressions: Hyperglycemia Referrals: Janak RODRIGUEZ,Kim Hdz (PCP/Family) Additional Instructions: Begin taking her diabetes medication as prescribed. Follow-up with urology and your PODIATRY PROFESSOR for reevaluation. Return to the emergency department for any new or worsening symptoms. Departure Forms: Customer Survey General Discharge Information (Skylar Summers) PA/CREDIT ASSISTANT Co-Sign Statement Statement: ED Attending supervision documentation- [] I saw and evaluated the patient. I have also reviewed all the pertinent lab results and diagnostic results. I agree with the findings and the plan of care as documented in the PA's/CREDIT ASSISTANT's documentation. [X] I have reviewed the ED Record and agree with the PA's/CREDIT ASSISTANT's documentation. [] Additions or exceptions (if any) to the PAs/CREDIT ASSISTANT's note and plan are summarized below: [] (Brooke RANDOLPH,Campos Wells) Critical Care Note Critical Care Note Critical Care Time: non-applicable (Skylar Summers)
[2017-12-04 14:43] VITALS: BP 110/70
[2017-12-04 15:16] LABS: ABSOLUTE BASOPHIL COUNT 0 /CUMM (0.0-0.2); ABSOLUTE EOSINOPHIL COUNT 0.1 /CUMM (0.0-0.7); ABSOLUTE GRANULOCYTE CT 5.5 /CUMM (1.4-6.5); ABSOLUTE LYMPH COUNT 2.6 /CUMM (1.2-3.4); ABSOLUTE MONOCYTE COUNT 0.6 /CUMM (0.10-0.60); BASOPHIL % 0.3 % (0.0-2.0); EOSINOPHIL % 1.4 % (0-5); HEMATOCRIT 40.4 % (37-47); MEAN CORPUSCULAR HGB 30.1 PG (27.0-31.0); MEAN CORPUSCULAR HGB CONC 33.8 G/DL (33.0-37.0); MEAN PLATELET VOLUME 8.1 FL (7.4-10.4); PLATELET COUNT 230 /CUMM (130-400); RBC DISTRIBUTION WIDTH 12.7 % (11.5-14.5); RED BLOOD CELL CT 4.54 /CUMM (4.20-5.40); WHITE BLOOD CELL COUNT 8.9 /CUMM (4.8-10.8)
== END 2017-12-04 15:58 ==
LOC: ERH 13:19
PROVIDERS: Physician Assistant
DX: R10.2 Pelvic and perineal pain (principal); E11.65 Type 2 diabetes mellitus with hyperglycemia
CPT/HCPCS: 81001; 81003; 81025; 87086

== ENCOUNTER 2018-01-02 08:11 | Emergency (ER) | payer OTHER ==
[~2018-01-02] VITALS: Ht 167.6 cm; Wt 156.5 kg
[2018-01-02 08:54] LABS: ABSOLUTE BASOPHIL COUNT 0 /CUMM (0.0-0.2); ABSOLUTE EOSINOPHIL COUNT 0.1 /CUMM (0.0-0.7); ABSOLUTE GRANULOCYTE CT 4.8 /CUMM (1.4-6.5); ABSOLUTE LYMPH COUNT 1.9 /CUMM (1.2-3.4); ABSOLUTE MONOCYTE COUNT 0.5 /CUMM (0.10-0.60); BASOPHIL % 0.3 % (0.0-2.0); EOSINOPHIL % 1.4 % (0-5); GRANULOCYTE % 65.7 % (42.2-75.2); HEMATOCRIT 40.6 % (37-47); MEAN CORPUSCULAR HGB 29.9 PG (27.0-31.0); MEAN CORPUSCULAR HGB CONC 34.1 G/DL (33.0-37.0); MEAN CORPUSCULAR VOLUME 87.8 FL (81.0-99.0); MEAN PLATELET VOLUME 7.7 FL (7.4-10.4); PLATELET COUNT 210 /CUMM (130-400); RED BLOOD CELL CT 4.62 /CUMM (4.20-5.40); WHITE BLOOD CELL COUNT 7.3 /CUMM (4.8-10.8)
[2018-01-02] MEDS ORDERED: PANTOPRAZOLE SO40 M1 PO (11:46)
--- NOTE | 2018-01-02 12:26 | ED GENERAL ADULT ---
History of Present Illness General Chief Complaint: Palpitations Stated Complaint: PALPITATIONS, "CRAMPS IN CHEST" Source: patient Exam Limitations: no limitations Vital Signs & Intake/Output Vital Signs & Intake/Output Vital Signs Date Time Temp Pulse Resp B/P B/P Pulse O2 O2 Flow FiO2 Mean Ox Delivery Rate 01/02 1237 98.0 78 18 146/62 100 Room Air 01/02 1232 98 Room Air 01/02 1037 96.8 79 18 113/73 97 Room Air 01/02 0824 95.0 82 18 122/80 96 Room Air Allergies Coded Allergies: metformin (From GLUMETZA) (Severe, RASH FROM GLUMETZA BRAND - HIVES 10/01/17) Penicillins (PT WAS A BABY AND DOES NOT KNOW REACTION 10/01/17) Sulfa (Sulfonamide Antibiotics) (LARYNGEAL EDEMA, HIVES 10/01/17) codeine (RASH, HIVES, GI 10/01/17) ibuprofen (LARYNGEAL EDEMA 10/01/17) pseudoephedrine (CAUSES HEART PALPITATIONS, SHAKEY AND NERVOUS 10/01/17) Reconcile Medications Alprazolam 0.5 MG TABLET 1 TAB PO TIDPRN ANXIETY (Reported) Apixaban (Eliquis) 5 MG TABLET 1 TAB PO BID afib Metoprolol Succinate 200 MG TAB.ER.24H 1 TAB PO DAILY HEART (Reported) Pantoprazole Sodium 40 MG TABLET.DR 1 TAB PO DAILY GI (Reported) Sertraline HCl 25 MG TABLET 1 TAB PO DAILY MENTAL HEALTH (Reported) Triage Note: 47 Y/O FEMALE C/O HEART PALPITATIONS AND CHEST "CRAMPING" SINCE THIS AM. STATES SHE HAD A SLEEP STUDY LAST NIGHT AT [facility] AND SYMPTOMS OCCURRED THROUGHOUT THE NIGHT. DENIES COMPLAINTS AT PRESENT. EKG COMPLETE, SINUS AT RATE 80 BLOODWORK SENT ([facility]) Triage Nurses Notes Reviewed? yes : No Patient currently breastfeeds: No HPI: 47 YO WF with multiple visits to this hospital presents with recurrent sense of palpitations intermittently and chronically for which she has seen Dr. Hoang and been diagnosed with a .fib in the past. Patient has been chronically anxious over her diagnosis, as well as the fact she is on Xanax and Metoprolol plus Zoloft and would like to get off meds. She had an appointment to see a new psychotherapist today but came to the ED instead. She is due for bariatric surgery in April. Patient admits to some JIMENEZ and anterior chest pain. She reports an otherwise negawtive cardiac work up including negative stress test and echo Past History Travel History Traveled to [place] past 21 day No Medical History Any Pertinent Medical History? 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 History of MRSA: Yes History of VRE: No History of CDIFF: No Surgical History Surgical History: cholecystectomy, (x 4), hysterectomy Psychosocial History Who do you live with Family Services at Home None What is your primary language Hebrew Tobacco Use: Quit >30 days ago Family History Family History, If Any: Relation not specified for: Diabetes mellitus in father Diabetes mellitus in mother Hypertension in father Hx Contributory? No Review of Systems Review of Systems Constitutional: Reports: see HPI. All Other Systems: Reviewed and Negative Physical Exam Physical Exam General Appearance: well developed/nourished, no apparent distress, alert Head: atraumatic, normal appearance Eyes: Bilateral: normal appearance, PERRL, EOMI. Ears, Nose, Throat: normal pharynx, hearing grossly normal Neck: normal inspection, supple, full range of motion Respiratory: normal breath sounds, fully reproducible tenderness left third costochondral junction Cardiovascular: regular rate/rhythm Peripheral Pulses: 4+ carotid (R) Gastrointestinal: normal bowel sounds, soft, non-tender, no organomegaly Extremities: normal inspection, normal capillary refill, normal range of motion, no edema Neurologic/Psych: no motor/sensory deficits, awake, alert, oriented x 3 Skin: intact, normal color, warm/dry Core Measures ACS in differential dx? Yes No ASA d/t Medical Contraindication CVA/TIA Diagnosis: No Sepsis Present: No Sepsis Focused Exam Completed? No Progress Differential Diagnoses I considered the following diagnoses in my evaluation of the patient: [[place] ACS, thyroid disease, PE, arrythmia, electrolyte disturbance, anxiety] Plan of Care: Orders Procedure Date/time Status URINE 01/02 813 Complete URINALYSIS 01/02 813 Complete TSH REFLEX 01/02 813 Complete TROPONIN LEVEL 01/02 813 Complete MAGNESIUM 01/02 813 Complete COMPREHENSIVE METABOLIC PANEL 01/02 813 Complete CBC WITHOUT DIFFERENTIAL 01/02 813 Complete EKG 01/02 811 Active Laboratory Tests 01/02/18 0836: Anion Gap 10, Estimated GFR > 60, BUN/Creatinine Ratio 21.7, Glucose 211 H, Calcium 9.2, Magnesium 1.6, Total Bilirubin 0.4, AST 22, ALT 35, Alkaline Phosphatase 94, Troponin I < 0.01, Total Protein 6.3, Albumin 3.8, Globulin 2.5, Albumin/Globulin Ratio 1.5, TSH &T3 &Free T4 Intrp 2.930, CBC w Diff NO MAN DIFF REQ, RBC 4.62, MCV 87.8, MCH 29.9, MCHC 34.1, RDW 13.0, MPV 7.7, Gran % 65.7, Lymphocytes % 26.4, Monocytes % 6.2, Eosinophils % 1.4, Basophils % 0.3, Absolute Granulocytes 4.8, Absolute Lymphocytes 1.9, Absolute Monocytes 0.5, Absolute Eosinophils 0.1, Absolute Basophils 0 01/02/18 0820: Urine Color YEL, Urine Clarity CLEAR, Urine pH 5.5, Ur Specific [place] >= 1.030 , Urine Protein NEG, Urine Ketones 15 H, Urine Nitrite NEG, Urine Bilirubin NEG , Urine Urobilinogen 0.2, Ur Leukocyte Esterase NEG, Ur Microscopic EXAM NOT REQUIRED, Urine Hemoglobin NEG, Urine Glucose NEG, Urine Test NEGATIVE Initial ED EKG: normal axis, normal intervals, normal p-waves, normal QRS complex, normal sinus rhythm, NSR Departure Departure Time of Disposition: 2 Disposition: HOME OR SELF CARE Condition: Stable Clinical Impression Primary Impression: Intermittent palpitations Secondary Impressions: Anxiety disorder Qualifiers: Anxiety disorder type: unspecified anxiety disorder Qualified Code: F41.9 - Anxiety disorder, unspecified Migraine headache Qualifiers: Migraine type: with aura Morbid obesity Referrals: Kim Angel (PCP/Family) Additional Instructions: Patient advised to follow up with her bed bug exterminator and PCP to discuss her current medication and possibility of switching from Zoloft to Cymbalta and discontinuing Eliquis as she is not in atrial fibrillation at this time. Departure Forms: Customer Survey General Discharge Information Critical Care Note Critical Care Note Critical Care Time: non-applicable ED Attending Observation Observation Re-Evaluation: I have reevaluated EVERARDO BOWERS on 01/02/18 at 1308. The physical findings that support the continued need to observe this patient include [onset of migraine headache just prior to discharge that was not present iniially. Patient has been seen in past here for similar complaints. No photophobia, N/V, neck pain or stiffness. Given Morphine 4 mg IM for pain control].
[2018-01-02 14:03] VITALS: BP 144/76
== END 2018-01-02 14:13 ==
LOC: ERH 08:11
PROVIDERS: Physician Assistant Medical
DX: R00.2 Palpitations (principal); R07.89 Other chest pain; I48.91 Unspecified atrial fibrillation; E11.9 Type 2 diabetes mellitus without complications; Z87.891 Personal history of nicotine dependence
CPT/HCPCS: 81003; 81025; 93005; 93010; 96372